=== PATIENT | female | born 1985 | race Caucasian/White ===

== ENCOUNTER 2020-01-17 02:40 | Inpatient (IN) | payer OTHER, SELFPAY ==
[2020-01-17] VITALS (12 sets, daily range): BP systolic 106–154; BP diastolic 55–84; PULSE 60–112; RESP 11–18; TEMP 36.5–37.4; O2SAT 92–99; BMI 34.2
[2020-01-17 04:08] LABS: Basophils Absolute Auto 0.1 X10*3/uL (0.0-0.2); Basophils Percent Auto 0.4 % (0-2); Eosinophils Absolute Auto 0.1 X10*3/uL (0.0-0.4); Eosinophils Percent Auto 0.6 % (0-4); Hemoglobin 13.1 g/dl (12.0-16.0); Imm Gran Abs Auto 0.06 X10*3/uL (0.00-0.03); Imm Gran Pct Auto 0.4 % (0.0-0.4); Lymphocytes Absolute Auto 1.4 X10*3/uL (1.2-4.9); Mean Corpuscular Hemoglobin 26.3 pg (27.0-33.0); Mean Corpuscular Volume 82.3 fL (80-98); Mean Platelet Volume 11.2 fL (9.4-12.3); Monocytes Absolute Auto 0.5 X10*3/uL (0.1-1.2); Monocytes Percent Auto 3.3 % (2-11); Neutrophils Absolute Auto 12.2 X10*3/uL (2.0-8.3); Neutrophils Percent Auto 85.3 % (45-73); Platelet Count 361 X10*3/uL (160-400); Red Blood Count 4.98 X10*6/uL (4.20-5.50); White Blood Count 14.4 X10*3/uL (4.8-10.8)
[2020-01-17 04:09] LABS: MANUAL DIFF FLAG NO
[2020-01-17] MEDS: ondansetron HCL 4 MG/2 ML VIAL IVPUSH ×2 (04:19→14:11)
[2020-01-17] MEDS: 0.9 % Sodium Chloride 1,000 ML 999 ML IVCONT (04:20)
--- NOTE | 2020-01-17 04:23 | PC.NURSE ---
pt lined and labbed, medicated per emar at this for nausea and vomitting. pt vomitted 500 cc of bile. unable to provide urine sample at this time. pending dr milligan
--- NOTE | 2020-01-17 04:31 | PC.NURSE ---
pt ambulated to bathroom without assistance
[2020-01-17 04:40] LABS: Alanine Aminotransferase 35 U/L (0-31); Albumin Level 4.2 g/dL (3.5-5.0); Alkaline Phosphatase 84 U/L (39-117); Anion Gap 13 (12-20); Aspartate Amino Transferase 17 U/L (5-31); Bilirubin Total < 0.2 mg/dL (0.0-1.0); Blood Urea Nitrogen 11 mg/dL (9-16); Calcium 9.5 mg/dL (8.4-10.2); Carbon Dioxide 23 mmol/L (22-29); Chloride 109 mmol/L (96-108); Creatinine Clr Calc Pharmacy 88.1; Estimated Glomerular Filt Rate > 60; Glucose Random 151 mg/dL (60-115); Potassium 4.3 mmol/l (3.3-5.1); Sodium 141 mmol/L (135-145); Total Protein 7.5 g/dL (6.5-8.0)
[2020-01-17 04:42] LABS: Glucose Urine UA NEG (NEG); Leukocyte Esterase Urine NEG (NEG); Nitrite Urine NEG (NEG); PH 5.5 (5.0-8.0); Specific Gravity - Urine >= 1.030 (1.005-1.025); Urine Blood 2+ (NEG); Urine Ketones NEG (NEG); Urine Protein NEG (NEG-TRACE)
[2020-01-17 04:51] LABS: Appearance Urine HAZY; Color Urine YELLOW
[2020-01-17 04:52] LABS: Bacteria Urine 2+ /LPF; Mucus Urine 2+ /LPF; Squamous Epithelial Cell Urine 2+ /LPF
[2020-01-17 04:53] LABS: Calcium Oxalate Crystals Urine 2+ /LPF; UPreg QC Valid YES; Urine Pregnancy NEGATIVE (NEGATIVE)
--- NOTE | 2020-01-17 05:41 | PC.NURSE ---
pt asking multiple times for medications. dr milligan aware of patients pain level.
--- NOTE | 2020-01-17 05:45 | CT_ITS ---
EXAMINATION: CT ABDOMEN AND PELVIS WITHOUT CONTRAST CLINICAL INFORMATION: Flank pain COMPARISON: 05/15/2016 TECHNIQUE: Multidetector volumetric imaging was performed from the superior aspect of the liver through the pubic symphysis. Sagittal and coronal reformatted images were obtained on the technologist's workstation. This CT examination was performed using dose optimization techniques as appropriate, variously including the following: *Automated exposure control *Adjustment of mA and/or kV according to patient size (this includes techniques or standardized protocols for targeted exams where dose is matched to indication/reason for exam; i.e. extremities or head) *Use of iterative reconstruction technique DLP: 701 mGy-cm FINDINGS: LUNG BASES: The visualized lung bases are unremarkable. LIVER, GALLBLADDER, AND BILIARY TREE: The liver is normal in size, shape, and attenuation. No focal hepatic lesion or biliary ductal dilatation is present. Patient is status post cholecystectomy. PANCREAS: Unremarkable. SPLEEN: Scattered tiny calcified granulomas noted. ADRENAL GLANDS: Unremarkable. KIDNEYS AND URETERS: The kidneys are normal in size, shape, and attenuation. Punctate renal calculi noted bilaterally. No hydronephrosis, hydroureter, or obstructing calculi seen. No perinephric stranding. BLADDER: Unremarkable. GASTROINTESTINAL TRACT: Much of the colon is noted to lie in the right abdomen. No evidence of bowel obstruction. No wall thickening identified. The appendix is predominantly fluid-filled and also contains a few appendicoliths, one of which is at the base of the appendix. Appendix is dilated to 11 mm in diameter, and there is suggestion of subtle adjacent stranding. No free fluid or free air is seen. ABDOMINAL WALL: No significant hernia is appreciated. LYMPH NODES: Normal. VASCULAR: Unremarkable. PELVIC VISCERA: Unremarkable. OSSEOUS STRUCTURES: Unremarkable. IMPRESSION: 1. Fluid-filled, dilated appendix with several appendicoliths and subtle adjacent stranding. Appearance raises concern for mild/early changes of acute appendicitis in the proper clinical setting. 2. Few punctate bilateral renal calculi, without hydronephrosis.
--- NOTE | 2020-01-17 05:56 | PC.NURSE ---
pt initially didnt want ct scan until she got pain medication but refused tylenol. dr milligan at bedside. pt ambulated to ct scan table at this time.
--- NOTE | 2020-01-17 06:29 | ED.ABDPAIN ---
HPI - Abdominal Pain General Chief Complaint: Abdominal Pain Stated Complaint: Abd pain Time Seen by Provider: 01/17/20 03:58 History of Present Illness HPI narrative: This is a 34-year-old female with right lower quadrant / flank pain that she describes has been going on for 2 days now and thinks that this may be secondary to her endometriosis. Otherwise, she denies any associated fevers or chills but did have an episode of nausea and vomiting prior to arrival. She is currently menstruating. Related Data Allergies Allergy/AdvReac Type Severity Reaction Status Date / Time diphenhydramine Allergy Unknown BODY PAIN Verified 01/17/20 02:42 [From BENADRYL] ibuprofen [From MOTRIN] Allergy Unknown HIVES Verified 01/17/20 02:42 morphine [MORPHINE] Allergy Unknown BACK Verified 01/17/20 02:42 MUSCLE SPASMS tramadol [TRAMADOL] Allergy Unknown HIVES Verified 01/17/20 02:42 From TORADOL Allergy Unknown HIVES Uncoded 12/16/19 18:30 Motrin Allergy Unknown Hives Uncoded 01/17/20 02:42 toradol Allergy Unknown Hives Uncoded 01/17/20 02:42 Review of Systems Review of Systems Pertinent positives and negatives as stated in HPI 10 point review of systems is otherwise negative. Physical Exam Vital Signs: Vital Signs: Vital Signs Temp Pulse Resp BP Pulse Ox 01/17/20 08:02 60 132/73 99 01/17/20 06:57 98.3 F 89 18 106/65 98 01/17/20 06:48 18 01/17/20 02:42 98.0 F 66 16 154/84 H 98 Body Mass Index 34.2 VITAL SIGNS: Reviewed. GENERAL: Well developed, well nourished, in no acute distress. HEAD: Normocephalic/atraumatic, EYES: PERRLA, EOMI intact without pain, no nystagmus/pallor/icterus noted EARS: Ext canals without abnormality, TMs non-bulging and non-erythematous NOSE: Nares patent bilateral OROPHARYNX: no oral lesions noted, posterior pharynx clear and non-erythematous without noted tonsillar enlargement/erythema/exudates NECK: Supple, no adenopathy LUNGS: Normal breath sounds. No adventitious sounds or accessory muscle use. SpO2<98%> CARDIOVASCULAR: Regular rate and rhythm without noted murmurs, no JVD or lower extremity edema. ABDOMEN: Soft, ttp at right lower quadrant, non-distended with bowel sounds. No rigidity. No guarding. No palpable masses or hernias noted MUSCULOSKELETAL: No tenderness, deformities, or effusions noted on gross inspection. EXTREMITIES: No cyanosis, clubbing or edema. SKIN: Inspection of the skin reveals no rashes, ulcerations, jaundice, pallor, or petechiae. NEUROLOGIC: Alert and oriented x 4. Strength and sensation to light touch were grossly intact x 4. Course Course Course Narrative: This is a 34-year-old female with history and clinical presentation suggestive of possible renal colic versus appendicitis versus endometriosis. On review of all lab work there is a leukocytosis and CT scan findings consistent with acute appendicitis. There is no evidence of sepsis. This case was discussed with surgery and they will be taking the patient for appendectomy. MDM - Abdominal Pain Lab Data Result diagrams: 01/17/20 04:01 01/17/20 04:01 Labs: Lab Results 01/17/20 01/17/20 01/17/20 Range/Units 04:01 04:01 04:01 WBC 14.4 H (4.8-10.8) X10*3/uL RBC 4.98 (4.20-5.50) X10*6/uL Hgb 13.1 (12.0-16.0) g/dl Hct 41.0 (37-47) % MCV 82.3 (80-98) fL MCH 26.3 L (27.0-33.0) pg MCHC 32.0 (31.0-35.0) g/dl RDW 15.0 (11.0-16.0) % Plt Count 361 (160-400) X10*3/uL MPV 11.2 (9.4-12.3) fL Immature Gran % (Auto) 0.4 (0.0-0.4) % Neut % (Auto) 85.3 H (45-73) % Lymph % (Auto) 10.0 L (20-40) % [place] % (Auto) 3.3 (2-11) % Eos % (Auto) 0.6 (0-4) % Baso % (Auto) 0.4 (0-2) % Lymph # (Auto) 1.4 (1.2-4.9) X10*3/uL [place] # (Auto) 0.5 (0.1-1.2) X10*3/uL Eos # (Auto) 0.1 (0.0-0.4) X10*3/uL Baso # (Auto) 0.1 (0.0-0.2) X10*3/uL Abs Immat Gran (auto) 0.06 H (0.00-0.03) X10*3/uL Absolute Neuts (auto) 12.2 H (2.0-8.3) X10*3/uL Absolute Nucleated RBC 0.000 (0.0-0.012) X10*3/uL Nucleated RBC % (auto) 0.0 (0.0-0.2) /100WBC Hold Blue Top SEE NOTE Sodium 141 (135-145) mmol/L Potassium 4.3 (3.3-5.1) mmol/l Chloride 109 H (96-108) mmol/L Carbon Dioxide 23 (22-29) mmol/L Anion Gap 13 (12-20) BUN 11 (9-16) mg/dL Creatinine 0.83 (0.5-1.4) mg/dL Estim Creat Clear Calc 88.1 Estimated GFR > 60 Random Glucose 151 H (60-115) mg/dL Calcium 9.5 (8.4-10.2) mg/dL Total Bilirubin < 0.2 (0.0-1.0) mg/dL AST 17 (5-31) U/L ALT 35 H (0-31) U/L Alkaline Phosphatase 84 (39-117) U/L Total Protein 7.5 (6.5-8.0) g/dL Albumin 4.2 (3.5-5.0) g/dL Urine Color Urine Appearance Urine pH (5.0-8.0) Ur Specific [place] (1.005-1.025) Urine Protein (NEG-TRACE) MG/DL Urine Glucose (UA) (NEG) MG/DL Urine Ketones (NEG) MG/DL Urine Blood (NEG) Urine Nitrite (NEG) Ur Leukocyte Esterase (NEG) Urine RBC (0) /HPF Urine WBC (0-4) /HPF Ur Squamous Epith Cells /LPF Calcium Oxalate Crystal /LPF Urine Bacteria /LPF Urine Mucus /LPF Urine Test (NEGATIVE) 01/17/20 01/17/20 Range/Units 04:34 04:34 WBC (4.8-10.8) X10*3/uL RBC (4.20-5.50) X10*6/uL Hgb (12.0-16.0) g/dl Hct (37-47) % MCV (80-98) fL MCH (27.0-33.0) pg MCHC (31.0-35.0) g/dl RDW (11.0-16.0) % Plt Count (160-400) X10*3/uL MPV (9.4-12.3) fL Immature Gran % (Auto) (0.0-0.4) % Neut % (Auto) (45-73) % Lymph % (Auto) (20-40) % [place] % (Auto) (2-11) % Eos % (Auto) (0-4) % Baso % (Auto) (0-2) % Lymph # (Auto) (1.2-4.9) X10*3/uL [place] # (Auto) (0.1-1.2) X10*3/uL Eos # (Auto) (0.0-0.4) X10*3/uL Baso # (Auto) (0.0-0.2) X10*3/uL Abs Immat Gran (auto) (0.00-0.03) X10*3/uL Absolute Neuts (auto) (2.0-8.3) X10*3/uL Absolute Nucleated RBC (0.0-0.012) X10*3/uL Nucleated RBC % (auto) (0.0-0.2) /100WBC Hold Blue Top Sodium (135-145) mmol/L Potassium (3.3-5.1) mmol/l Chloride (96-108) mmol/L Carbon Dioxide (22-29) mmol/L Anion Gap (12-20) BUN (9-16) mg/dL Creatinine (0.5-1.4) mg/dL Estim Creat Clear Calc Estimated GFR Random Glucose (60-115) mg/dL Calcium (8.4-10.2) mg/dL Total Bilirubin (0.0-1.0) mg/dL AST (5-31) U/L ALT (0-31) U/L Alkaline Phosphatase (39-117) U/L Total Protein (6.5-8.0) g/dL Albumin (3.5-5.0) g/dL Urine Color YELLOW Urine Appearance HAZY Urine pH 5.5 (5.0-8.0) Ur Specific [place] >= 1.030 H (1.005-1.025) Urine Protein NEG (NEG-TRACE) MG/DL Urine Glucose (UA) NEG (NEG) MG/DL Urine Ketones NEG (NEG) MG/DL Urine Blood 2+ H (NEG) Urine Nitrite NEG (NEG) Ur Leukocyte Esterase NEG (NEG) Urine RBC 1-4 (0) /HPF Urine WBC 1-4 (0-4) /HPF Ur Squamous Epith Cells 2+ /LPF Calcium Oxalate Crystal 2+ /LPF Urine Bacteria 2+ /LPF Urine Mucus 2+ /LPF Urine Test NEGATIVE (NEGATIVE) Discharge Plan Discharge Clinical Impression: Acute appendicitis Qualifiers: Acute appendicitis type: other Qualified Code(s): K35.890 - Other acute appendicitis without perforation or gangrene Patient Disposition: Admitted As Inpatient [facility] Past Medical History Medical History (Updated 01/17/20 @ 07:12 by Oksana Handy MD) Cholecystectomy planned Surgical History (Updated 01/17/20 @ 07:06 by Sp Dawkins) H/O lithotripsy H/O: Social History Social History Alcohol intake: never Smoked in Last 30 Days: No Use of substances other than those prescribed or required for medical reasons: No Advance Directives: No Advance Directives Information Provided: No
[2020-01-17] MEDS: Piperacillin Sodium/Tazobactam 3.375 GM in 0.9 % Sodium Chloride 50 ML IV (06:48)
[2020-01-17] MEDS: fentaNYL citrate/PF 100 MCG/2 ML VIAL 25 MCG IVPUSH (06:48)
--- NOTE | 2020-01-17 07:00 | PC.NURSE ---
RECEIVED REPORT FROM CHRISTINA DONIS
[2020-01-17] MEDS: HYDROmorphone HCl 0.5 MG/0.5 ML SYRINGE IVPUSH ×3 (07:22→15:33)
--- NOTE | 2020-01-17 07:24 | PC.NURSE ---
pt medicated with diulated,reports no improvement after fentanly pain at 10/10. pt rocking in pain in the stretcher
--- NOTE | 2020-01-17 08:01 | PC.NURSE ---
pt reports feeling better after the medication pain at 4/10 at this time. pt aware of plan to go to surgery this morning
--- NOTE | 2020-01-17 08:11 | MHC.SHP ---
Pre-Procedural Eval Section B Chief Complaint: APPENDETOMY LAPAROSCOPIC Allergies: Allergies Allergy/AdvReac Type Severity Reaction Status Date / Time diphenhydramine Allergy Unknown BODY PAIN Verified 01/17/20 02:42 [From BENADRYL] ibuprofen [From MOTRIN] Allergy Unknown HIVES Verified 01/17/20 02:42 morphine [MORPHINE] Allergy Unknown BACK Verified 01/17/20 02:42 MUSCLE SPASMS tramadol [TRAMADOL] Allergy Unknown HIVES Verified 01/17/20 02:42 From TORADOL Allergy Unknown HIVES Uncoded 12/16/19 18:30 Motrin Allergy Unknown Hives Uncoded 01/17/20 02:42 toradol Allergy Unknown Hives Uncoded 01/17/20 02:42 Plan Patient has been examined and remains a candidate for the planned procedure
--- NOTE | 2020-01-17 08:11 | PM.HPGS ---
History of Present Illness History of Present Illness Chief complaint: APPENDETOMY LAPAROSCOPIC Narrative: Ketty Vann is a 34 year old female [facility] Past Medical History Medical History (Updated 01/17/20 @ 07:12 by Oksana Handy MD) Cholecystectomy planned Surgical History Surgical History (Updated 01/17/20 @ 07:06 by Sp Dawkins) H/O lithotripsy H/O: Social History Social History Alcohol intake: never Smoked in Last 30 Days: No Use of substances other than those prescribed or required for medical reasons: No Advance Directives: No Advance Directives Information Provided: No Meds Allergies Allergy/AdvReac Type Severity Reaction Status Date / Time diphenhydramine Allergy Unknown BODY PAIN Verified 01/17/20 02:42 [From BENADRYL] ibuprofen [From MOTRIN] Allergy Unknown HIVES Verified 01/17/20 02:42 morphine [MORPHINE] Allergy Unknown BACK Verified 01/17/20 02:42 MUSCLE SPASMS tramadol [TRAMADOL] Allergy Unknown HIVES Verified 01/17/20 02:42 From TORADOL Allergy Unknown HIVES Uncoded 12/16/19 18:30 Motrin Allergy Unknown Hives Uncoded 01/17/20 02:42 toradol Allergy Unknown Hives Uncoded 01/17/20 02:42 Physical Exam Vital Signs: Vital Signs: Vital Signs Temp Pulse Resp BP Pulse Ox 01/17/20 08:02 60 132/73 99 01/17/20 06:57 98.3 F 89 18 106/65 98 01/17/20 06:48 18 01/17/20 02:42 98.0 F 66 16 154/84 H 98 Body Mass Index 34.2 Results Results Labs: Short CBC 01/17/20 Range/Units 04:01 WBC 14.4 H (4.8-10.8) X10*3/uL Hgb 13.1 (12.0-16.0) g/dl Hct 41.0 (37-47) % Plt Count 361 (160-400) X10*3/uL BMP 01/17/20 04:01 Sodium 141 Potassium 4.3 Chloride 109 H Carbon Dioxide 23 BUN 11 Creatinine 0.83 Calcium 9.5 Liver Function 01/17/20 Range/Units 04:01 Total Bilirubin < 0.2 (0.0-1.0) mg/dL AST 17 (5-31) U/L ALT 35 H (0-31) U/L Alkaline Phosphatase 84 (39-117) U/L Albumin 4.2 (3.5-5.0) g/dL Urine 01/17/20 01/17/20 Range/Units 04:34 04:34 Urine Color YELLOW Urine Appearance HAZY Urine pH 5.5 (5.0-8.0) Ur Specific [place] >= 1.030 H (1.005-1.025) Urine Protein NEG (NEG-TRACE) MG/DL Urine Glucose (UA) NEG (NEG) MG/DL Urine Test NEGATIVE (NEGATIVE)
--- NOTE | 2020-01-17 09:15 | PC.NURSE ---
pt medicated with additional diulated 0.5mg for pain at 11/07 at this time
--- NOTE | 2020-01-17 09:33 | PC.NURSE ---
REPORT GIVEN TO MED/TRANSPORTATION WORKER
--- NOTE | 2020-01-17 09:43 | PC.NURSE ---
SURGENT AT BEDSIDE TO EVALUATE THE PT
--- NOTE | 2020-01-17 09:57 | P.HPGS_ITS ---
History of Present Illness History of Present Illness Chief complaint: APPENDETOMY LAPAROSCOPIC Narrative: This is a 34-year-old lady previously healthy with the exception of pelvic pain from endometriosis who developed periumbilical pain 2 days ago. She reports the pain was initially a 5/10 and progressed over the course of the last 48 hours. She reports pain localized to the right lower quadrant early this morning. Her pain is now in 9 to 10/10 on a pain scale. She had associated nausea and vomiting at home. Her last meal was rice at 6 in the evening yesterday. She reports having diarrhea which is a change from her normal bowel habits. Last stool was this morning in the emergency department. She reports no alleviating factors but reports any kind of movement using the abdominal muscles worsens the pain. She reports feeling hot and cold at home but did not have a fever. She denies prior episodes. Patient was seen in the emergency department evaluated and found have white blood cell count of 14.4. She had a CT scan abdomen pelvis was that showed a mostly fluid filled appendix with a few appendicoliths and 1 at the base of the appendix with dilation of the appendix and self surrounding fat stranding. Review of Systems Constitutional: Constitutional: Reports anorexia, Reports chills, Reports difficulty sleeping, Denies excessive sweating, Reports fatigue and Reports lethargy Eyes: Eyes: Denies blurry vision and Denies other visual disturbances ENT: Reports Normal hearing present, Denies dysphagia, Denies vertigo, Denies dizziness and Denies neck pain Cardiovascular: Cardiovascular: Denies chest pain, Denies chest pain at rest, Denies chest pain with activity, Denies syncope and Denies pedal edema Respiratory: Respiratory: Denies no additional respiratory complaints and Reports cough Gastrointestinal: Gastrointestinal: Reports hematochezia, Reports change in bowel habits, Denies dysphagia, Denies heartburn, Reports diarrhea, Reports nausea and Reports vomiting Genitourinary: Genitourinary: Denies hematuria, Denies urinary frequency and Reports pelvic pain Musculoskeletal: Musculoskeletal: Denies abnormal gait, Reports back pain, Denies arthralgias, Denies joint swelling and Denies neck pain Neurologic: Reports Normal hearing present, Denies Neuro-related abnormal movements, Denies Abnormal speech present, Denies abnormal gait, Denies confusion, Denies vertigo, Denies dizziness and Denies syncope Psychiatric: Psychiatric: Denies confusion, Reports depression and Reports mood swings Endocrine: Endocrine: Denies excessive sweating, Reports fatigue, Denies flushing and Denies heat intolerance Hematologic/Lymphatic: Hematologic/Lymphatic: Denies easy bleeding, Denies easy bruising and Denies lymphadenopathy PMFSH Past Medical History Medical History Bipolar disorder Endometriosis Hypothyroidism Obesity (BMI 30-39.9) Posterior cranial fossa malformation, hemangioma, arterial anomaly, cardiac defect, eye abnormality, and sternal cleft or supraumbilical raphe syndrome Family History Family History Father No problems noted. Mother No problems noted. Paternal Grandfather History of bone cancer Sister No problems noted. Sister No problems noted. Daughter No problems noted. Daughter No problems noted. Surgical History Surgical History (Updated 01/17/20 @ 10:08 by Annalise Sky MD) H/O lithotripsy H/O: History of skin graft S/P laparoscopic cholecystectomy S/P left knee arthroscopy Social History Social History (Updated 01/17/20 @ 10:12 by Annalise Sky MD) Alcohol intake: never Smoking Status: Former smoker Smoked in Last 30 Days: No Smoking Quit Date: 2013 Use of substances other than those prescribed or required for medical reasons: No Advance Directives: No Advance Directives Information Provided: No Meds Allergies Allergy/AdvReac Type Severity Reaction Status Date / Time diphenhydramine Allergy Unknown BODY PAIN Verified 01/17/20 10:12 [From BENADRYL] ibuprofen [From MOTRIN] Allergy Unknown HIVES Verified 01/17/20 10:12 morphine [MORPHINE] Allergy Unknown BACK Verified 01/17/20 10:12 MUSCLE SPASMS tramadol [TRAMADOL] Allergy Unknown HIVES Verified 01/17/20 10:12 From TORADOL Allergy Unknown HIVES Uncoded 01/17/20 10:12 Motrin Allergy Unknown Hives Uncoded 01/17/20 10:12 toradol Allergy Unknown Hives Uncoded 01/17/20 10:12 Home Medications Medication Instructions Recorded Confirmed Type lamotrigine 200 mg PO DAILY 01/17/20 01/17/20 History levothyroxine 88 mcg PO DAILY 01/17/20 01/17/20 History Physical Exam Vital Signs: Vital Signs: Vital Signs Temp Pulse Resp BP Pulse Ox 01/17/20 09:16 98.1 F 79 128/70 98 01/17/20 08:02 60 132/73 99 01/17/20 06:57 98.3 F 89 18 106/65 98 01/17/20 06:48 18 01/17/20 02:42 98.0 F 66 16 154/84 H 98 Body Mass Index 34.2 Const: General: cooperative, healthy appearing and no acute distress; No comfortable or confusion Orientation/consciousness: No confusion HENMT: Head: Yes normal to inspection, Yes normocephalic and Yes atraumatic Eyes: General: appearance normal, both eyes and all related structures Conjunctivae: conjunctivae normal Sclerae: sclerae normal EOM: EOMs intact bilaterally Neck: Neck: Yes normal visual inspection, Yes full ROM, Yes no lymphadenopathy and Yes supple Resp: Effort & Inspection: normal respiratory effort, able to speak in complete sentences, no audible wheezes and no cough Auscultation: clear to auscultation bilaterally Cardio: Rate: regular rate Heart sounds: S1 normal heart sound present and S2 normal heart sound present GI: Inspection: Yes normal to inspection, No Abdominal wall edema, No distended and No incision Palpation (GI): Soft to palpation, Tenderness to palpation present (GI) ( bilateral lower quadrants and suprapubic) and Guarding due to palpation present (GI) ( and rebound) in the LLQ and in the RLQ Skin: General skin exam: no rashes or lesions noted Neuro: General: No confusion Cranial nerves: Yes Normal hearing present Speech: No Abnormal speech present Extrem: General: Yes normal to inspection, Yes full ROM, Yes no pedal edema and Yes no calf tenderness Results Results Labs: Short CBC 01/17/20 Range/Units 04:01 WBC 14.4 H (4.8-10.8) X10*3/uL Hgb 13.1 (12.0-16.0) g/dl Hct 41.0 (37-47) % Plt Count 361 (160-400) X10*3/uL BMP 01/17/20 04:01 Sodium 141 Potassium 4.3 Chloride 109 H Carbon Dioxide 23 BUN 11 Creatinine 0.83 Calcium 9.5 Liver Function 01/17/20 Range/Units 04:01 Total Bilirubin < 0.2 (0.0-1.0) mg/dL AST 17 (5-31) U/L ALT 35 H (0-31) U/L Alkaline Phosphatase 84 (39-117) U/L Albumin 4.2 (3.5-5.0) g/dL Urine 01/17/20 01/17/20 Range/Units 04:34 04:34 Urine Color YELLOW Urine Appearance HAZY Urine pH 5.5 (5.0-8.0) Ur Specific [place] >= 1.030 H (1.005-1.025) Urine Protein NEG (NEG-TRACE) MG/DL Urine Glucose (UA) NEG (NEG) MG/DL Urine Test NEGATIVE (NEGATIVE) Assessment and Plan (1) Acute appendicitis: Qualifiers: Acute appendicitis type: other Qualified Code(s): K35.890 - Other acute appendicitis without perforation or gangrene Status: Acute this is a 34-year-old lady with acute appendicitis by history physical exam laboratory values and radiologic studies. She will be taken to the operating room for laparoscopic possible open appendectomy. Risks benefits and alternatives were discussed with the patient she agrees proceed.
[2020-01-17 10:01] LABS: SARS COV2 PCR INHOUSE NEGATIVE (Negative)
--- NOTE | 2020-01-17 12:21 | P.CONAN_ITS ---
[facility] Past Medical History Medical History Bipolar disorder Endometriosis Hypothyroidism Obesity (BMI 30-39.9) Posterior cranial fossa malformation, hemangioma, arterial anomaly, cardiac defect, eye abnormality, and sternal cleft or supraumbilical raphe syndrome Family History Family History Father No problems noted. Mother No problems noted. Paternal Grandfather History of bone cancer Sister No problems noted. Sister No problems noted. Daughter No problems noted. Daughter No problems noted. Surgical History Surgical History (Updated 01/17/20 @ 10:08 by Annalise Sky MD) H/O lithotripsy H/O: History of skin graft S/P laparoscopic cholecystectomy S/P left knee arthroscopy Social History Social History (Updated 01/17/20 @ 10:12 by Annalise Sky MD) Household Members: Spouse Housing: House Alcohol intake: never Smoking Status: Former smoker Second Hand Smoke Exposure: No Meds Allergies Allergy/AdvReac Type Severity Reaction Status Date / Time ibuprofen [From MOTRIN] Allergy Unknown HIVES Verified 01/17/20 10:12 tramadol [TRAMADOL] Allergy Unknown HIVES Verified 01/17/20 10:12 diphenhydramine AdvReac Unknown BODY PAIN Verified 01/17/20 10:21 [From BENADRYL] morphine [MORPHINE] AdvReac Unknown BACK Verified 01/17/20 10:21 MUSCLE SPASMS From TORADOL Allergy Unknown HIVES Uncoded 01/17/20 10:12 Home Medications Medication Instructions Recorded Confirmed Type lamotrigine 200 mg PO DAILY 01/17/20 01/17/20 History levothyroxine 88 mcg PO DAILY 01/17/20 01/17/20 History Exam Exam Date and Time: January 17, 2020 1221 Height,Weight and Vital Signs: Height 5 ft Weight 79.37 kg Last Vital Signs Temp 98.1 F 01/17/20 09:16 Pulse 79 01/17/20 09:16 Resp 18 01/17/20 06:57 BP 128/70 01/17/20 09:16 Pulse Ox 98 01/17/20 09:16 Pertinent Lab Results Pertinent Lab Results: Laboratory Tests 01/17/20 01/17/20 01/17/20 04:01 04:01 04:01 WBC 14.4 H RBC 4.98 Hgb 13.1 Hct 41.0 MCV 82.3 MCH 26.3 L MCHC 32.0 RDW 15.0 Plt Count 361 MPV 11.2 Immature Gran % (Auto) 0.4 Neut % (Auto) 85.3 H Lymph % (Auto) 10.0 L [place] % (Auto) 3.3 Eos % (Auto) 0.6 Baso % (Auto) 0.4 Lymph # (Auto) 1.4 [place] # (Auto) 0.5 Eos # (Auto) 0.1 Baso # (Auto) 0.1 Abs Immat Gran (auto) 0.06 H Absolute Neuts (auto) 12.2 H Absolute Nucleated RBC 0.000 Nucleated RBC % (auto) 0.0 Hold Blue Top SEE NOTE Sodium 141 Potassium 4.3 Chloride 109 H Carbon Dioxide 23 Anion Gap 13 BUN 11 Creatinine 0.83 Estim Creat Clear Calc 88.1 Estimated GFR > 60 Random Glucose 151 H Calcium 9.5 Total Bilirubin < 0.2 AST 17 ALT 35 H Alkaline Phosphatase 84 Total Protein 7.5 Albumin 4.2 Urine Color Urine Appearance Urine pH Ur Specific [place] Urine Protein Urine Glucose (UA) Urine Ketones Urine Blood Urine Nitrite Ur Leukocyte Esterase Urine RBC Urine WBC Ur Squamous Epith Cells Calcium Oxalate Crystal Urine Bacteria Urine Mucus Urine Test Coronavirus (PCR) 01/17/20 01/17/20 01/17/20 04:34 04:34 08:51 WBC RBC Hgb Hct MCV MCH MCHC RDW Plt Count MPV Immature Gran % (Auto) Neut % (Auto) Lymph % (Auto) [place] % (Auto) Eos % (Auto) Baso % (Auto) Lymph # (Auto) [place] # (Auto) Eos # (Auto) Baso # (Auto) Abs Immat Gran (auto) Absolute Neuts (auto) Absolute Nucleated RBC Nucleated RBC % (auto) Hold Blue Top Sodium Potassium Chloride Carbon Dioxide Anion Gap BUN Creatinine Estim Creat Clear Calc Estimated GFR Random Glucose Calcium Total Bilirubin AST ALT Alkaline Phosphatase Total Protein Albumin Urine Color YELLOW Urine Appearance HAZY Urine pH 5.5 Ur Specific [place] >= 1.030 H Urine Protein NEG Urine Glucose (UA) NEG Urine Ketones NEG Urine Blood 2+ H Urine Nitrite NEG Ur Leukocyte Esterase NEG Urine RBC 1-4 Urine WBC 1-4 Ur Squamous Epith Cells 2+ Calcium Oxalate Crystal 2+ Urine Bacteria 2+ Urine Mucus 2+ Urine Test NEGATIVE Coronavirus (PCR) NEGATIVE Airway Mallampati Class: I TM Dist: >3cm Neck ROM: Full Heart: RRR Assessment and Plan Assessment Anesthesia Assessment: Anesthesia Plan Discussed Final Anesthetic Review NPO: Yes ASA Class: II Final Preanesthetic Review: Consent Obtained/Reviewed Anesthetic Plan Anesthetic Plan: GA Disposition: Standard PACU
--- NOTE | 2020-01-17 12:37 | P.CONAN_ITS ---
Documented by User: Jono Montelongo 01/17/20 12:38 [facility] Past Medical History Medical History Bipolar disorder Endometriosis Hypothyroidism Obesity (BMI 30-39.9) Posterior cranial fossa malformation, hemangioma, arterial anomaly, cardiac defect, eye abnormality, and sternal cleft or supraumbilical raphe syndrome Family History Family History Father No problems noted. Mother No problems noted. Paternal Grandfather History of bone cancer Sister No problems noted. Sister No problems noted. Daughter No problems noted. Daughter No problems noted. Surgical History Surgical History (Updated 01/17/20 @ 10:08 by Annalise Sky MD) H/O lithotripsy H/O: History of skin graft S/P laparoscopic cholecystectomy S/P left knee arthroscopy Social History Social History (Updated 01/17/20 @ 10:12 by Annalise Sky MD) Household Members: Spouse Housing: House Alcohol intake: never Smoking Status: Former smoker Second Hand Smoke Exposure: No Meds Allergies Allergy/AdvReac Type Severity Reaction Status Date / Time ibuprofen [From MOTRIN] Allergy Unknown HIVES Verified 01/17/20 10:12 tramadol [TRAMADOL] Allergy Unknown HIVES Verified 01/17/20 10:12 diphenhydramine AdvReac Unknown BODY PAIN Verified 01/17/20 10:21 [From BENADRYL] morphine [MORPHINE] AdvReac Unknown BACK Verified 01/17/20 10:21 MUSCLE SPASMS From TORADOL Allergy Unknown HIVES Uncoded 01/17/20 10:12 Home Medications Medication Instructions Recorded Confirmed Type lamotrigine 200 mg PO DAILY 01/17/20 01/17/20 History levothyroxine 88 mcg PO DAILY 01/17/20 01/17/20 History Exam Exam Date and Time: January 17, 2020 1237 Height,Weight and Vital Signs: Height 5 ft Weight 79.37 kg Last Vital Signs Temp 98.1 F 01/17/20 09:16 Pulse 79 01/17/20 09:16 Resp 18 01/17/20 06:57 BP 128/70 01/17/20 09:16 Pulse Ox 98 01/17/20 09:16 Pertinent Lab Results Pertinent Lab Results: Laboratory Tests 01/17/20 01/17/20 01/17/20 04:01 04:01 04:01 WBC 14.4 H RBC 4.98 Hgb 13.1 Hct 41.0 MCV 82.3 MCH 26.3 L MCHC 32.0 RDW 15.0 Plt Count 361 MPV 11.2 Immature Gran % (Auto) 0.4 Neut % (Auto) 85.3 H Lymph % (Auto) 10.0 L [place] % (Auto) 3.3 Eos % (Auto) 0.6 Baso % (Auto) 0.4 Lymph # (Auto) 1.4 [place] # (Auto) 0.5 Eos # (Auto) 0.1 Baso # (Auto) 0.1 Abs Immat Gran (auto) 0.06 H Absolute Neuts (auto) 12.2 H Absolute Nucleated RBC 0.000 Nucleated RBC % (auto) 0.0 Hold Blue Top SEE NOTE Sodium 141 Potassium 4.3 Chloride 109 H Carbon Dioxide 23 Anion Gap 13 BUN 11 Creatinine 0.83 Estim Creat Clear Calc 88.1 Estimated GFR > 60 Random Glucose 151 H Calcium 9.5 Total Bilirubin < 0.2 AST 17 ALT 35 H Alkaline Phosphatase 84 Total Protein 7.5 Albumin 4.2 Urine Color Urine Appearance Urine pH Ur Specific [place] Urine Protein Urine Glucose (UA) Urine Ketones Urine Blood Urine Nitrite Ur Leukocyte Esterase Urine RBC Urine WBC Ur Squamous Epith Cells Calcium Oxalate Crystal Urine Bacteria Urine Mucus Urine Test Coronavirus (PCR) 01/17/20 01/17/20 01/17/20 04:34 04:34 08:51 WBC RBC Hgb Hct MCV MCH MCHC RDW Plt Count MPV Immature Gran % (Auto) Neut % (Auto) Lymph % (Auto) [place] % (Auto) Eos % (Auto) Baso % (Auto) Lymph # (Auto) [place] # (Auto) Eos # (Auto) Baso # (Auto) Abs Immat Gran (auto) Absolute Neuts (auto) Absolute Nucleated RBC Nucleated RBC % (auto) Hold Blue Top Sodium Potassium Chloride Carbon Dioxide Anion Gap BUN Creatinine Estim Creat Clear Calc Estimated GFR Random Glucose Calcium Total Bilirubin AST ALT Alkaline Phosphatase Total Protein Albumin Urine Color YELLOW Urine Appearance HAZY Urine pH 5.5 Ur Specific [place] >= 1.030 H Urine Protein NEG Urine Glucose (UA) NEG Urine Ketones NEG Urine Blood 2+ H Urine Nitrite NEG Ur Leukocyte Esterase NEG Urine RBC 1-4 Urine WBC 1-4 Ur Squamous Epith Cells 2+ Calcium Oxalate Crystal 2+ Urine Bacteria 2+ Urine Mucus 2+ Urine Test NEGATIVE Coronavirus (PCR) NEGATIVE Assessment and Plan Final Anesthetic Review ASA Class: II Anesthetic Plan Anesthetic Plan: GA Documented by User: Liliana Hall 01/17/20 13:06 [facility] Past Medical History Medical History Bipolar disorder Endometriosis Hypothyroidism Obesity (BMI 30-39.9) Posterior cranial fossa malformation, hemangioma, arterial anomaly, cardiac defect, eye abnormality, and sternal cleft or supraumbilical raphe syndrome Family History Family History Father No problems noted. Mother No problems noted. Paternal Grandfather History of bone cancer Sister No problems noted. Sister No problems noted. Daughter No problems noted. Daughter No problems noted. Surgical History Surgical History (Updated 01/17/20 @ 10:08 by Annalise Sky MD) H/O lithotripsy H/O: History of skin graft S/P laparoscopic cholecystectomy S/P left knee arthroscopy Social History Social History (Updated 01/17/20 @ 10:12 by Annalise Sky MD) Household Members: Spouse Housing: House Alcohol intake: never Smoking Status: Former smoker Second Hand Smoke Exposure: No Meds Allergies Allergy/AdvReac Type Severity Reaction Status Date / Time ibuprofen [From MOTRIN] Allergy Unknown HIVES Verified 01/17/20 10:12 tramadol [TRAMADOL] Allergy Unknown HIVES Verified 01/17/20 10:12 diphenhydramine AdvReac Unknown BODY PAIN Verified 01/17/20 10:21 [From BENADRYL] morphine [MORPHINE] AdvReac Unknown BACK Verified 01/17/20 10:21 MUSCLE SPASMS From TORADOL Allergy Unknown HIVES Uncoded 01/17/20 10:12 Home Medications Medication Instructions Recorded Confirmed Type lamotrigine 200 mg PO DAILY 01/17/20 01/17/20 History levothyroxine 88 mcg PO DAILY 01/17/20 01/17/20 History Exam Pertinent Lab Results Pertinent Lab Results: 01/17/20 03:54 IV insert/maintain NOW 01/17/20 04:01 Complete Blood Count Auto Diff Stat Comprehensive Met. Panel Stat Hold Lt Blue - Possible Coag Stat 01/17/20 04:10 ondansetron HCL [Zofran] 4 mg IVPUSH ONCE ONE 01/17/20 04:15 0.9 % Sodium Chloride [Ns] 1,000 ml IVCONT 999 mls/hr 01/17/20 04:34 Ur Preg Test Stat 01/17/20 05:45 CT abdomen pelvis wo con Stat 01/17/20 05:46 Acetaminophen [Tylenol] 975 mg PO ONCE ONE 01/17/20 06:37 Piperacillin Sodium/Tazobactam [Zosyn] 3.375 gm 0.9 % Sodium Chloride [Ns] 50 ml IV ONCE fentaNYL citrate/PF [Sublimaze] 25 mcg IVPUSH ONCE ONE 01/17/20 06:41 Piperacillin Sodium/Tazobactam [Zosyn] 3.375 gm IV .STK-MED ONE 01/17/20 06:51 ondansetron HCL [Zofran] 4 mg .ROUTE .STK-MED ONE 01/17/20 07:16 HYDROmorphone HCl [Dilaudid] 0.5 mg IVPUSH ONCE ONE 01/17/20 08:09 cefoTEtan disod/Dextrose,Iso [Cefotan] 2 gm in 50 ml IV PREOP 01/17/20 08:10 Transfer Order Routine 01/17/20 08:51 SARS COV2 PCR INHOUSE Stat 01/17/20 Breakfast NPO Diet 01/17/20 10:52 cefoTEtan disodium [Cefotan] 2 gm .ROUTE .STK-MED ONE 01/17/20 11:45 Transfer Order Routine 01/17/20 12:04 Bupivacaine MPF 0.25 % [Sensorcaine-MPF 0.25% 10 ML] 10 ml .ROUTE .STK-MED ONE Lidocaine HCl 1%/Epi 1:100,000 [Xylocaine 1 %-EPI 1:100,000] 30 ml .ROUTE .STK-MED ONE 01/17/20 12:09 Lidocaine HCl 2 % MPF [Xylocaine 2 % MPF] 5 ml .ROUTE .STK-MED ONE Midazolam HCl/PF [Versed] 2 mg IVPUSH .STK-MED ONE Succinylcholine Chloride [Quelicin] 100 mg IVPUSH .STK-MED ONE fentaNYL citrate/PF [Sublimaze] 50 mcg .ROUTE .STK-MED ONE propofoL [Diprivan] 200 mg IVPUSH .STK-MED ONE 01/17/20 12:14 Rocuronium [place] [Zemuron] 100 mg IV .STK-MED ONE 01/17/20 12:28 Acetaminophen [Ofirmev] 1,000 mg in 100 ml IV ONCE Laboratory Last Values WBC 14.4 X10*3/uL (4.8-10.8) H 01/17/20 04:01 RBC 4.98 X10*6/uL (4.20-5.50) 01/17/20 04:01 Hgb 13.1 g/dl (12.0-16.0) 01/17/20 04:01 Hct 41.0 % (37-47) 01/17/20 04:01 MCV 82.3 fL (80-98) 01/17/20 04:01 MCH 26.3 pg (27.0-33.0) L 01/17/20 04:01 MCHC 32.0 g/dl (31.0-35.0) 01/17/20 04:01 RDW 15.0 % (11.0-16.0) 01/17/20 04:01 Plt Count 361 X10*3/uL (160-400) 01/17/20 04:01 MPV 11.2 fL (9.4-12.3) 01/17/20 04:01 Immature Gran % (Auto) 0.4 % (0.0-0.4) 01/17/20 04:01 Neut % (Auto) 85.3 % (45-73) H 01/17/20 04:01 Lymph % (Auto) 10.0 % (20-40) L 01/17/20 04:01 Boy[place] % (Auto) 3.3 % (2-11) 01/17/20 04:01 Eos % (Auto) 0.6 % (0-4) 01/17/20 04:01 Baso % (Auto) 0.4 % (0-2) 01/17/20 04:01 Lymph # (Auto) 1.4 X10*3/uL (1.2-4.9) 01/17/20 04:01 [place] # (Auto) 0.5 X10*3/uL (0.1-1.2) 01/17/20 04:01 Eos # (Auto) 0.1 X10*3/uL (0.0-0.4) 01/17/20 04:01 Baso # (Auto) 0.1 X10*3/uL (0.0-0.2) 01/17/20 04:01 Abs Immat Gran (auto) 0.06 X10*3/uL (0.00-0.03) H 01/17/20 04:01 Absolute Neuts (auto) 12.2 X10*3/uL (2.0-8.3) H 01/17/20 04:01 Absolute Nucleated RBC 0.000 X10*3/uL (0.0-0.012) 01/17/20 04:01 Nucleated RBC % (auto) 0.0 /100WBC (0.0-0.2) 01/17/20 04:01 Hold Blue Top SEE NOTE 01/17/20 04:01 Sodium 141 mmol/L (135-145) 01/17/20 04:01 Potassium 4.3 mmol/l (3.3-5.1) 01/17/20 04:01 Chloride 109 mmol/L (96-108) H 01/17/20 04:01 Carbon Dioxide 23 mmol/L (22-29) 01/17/20 04:01 Anion Gap 13 (12-20) 01/17/20 04:01 BUN 11 mg/dL (9-16) 01/17/20 04:01 Creatinine 0.83 mg/dL (0.5-1.4) 01/17/20 04:01 Estim Creat Clear Calc 88.1 01/17/20 04:01 Estimated GFR > 60 01/17/20 04:01 Random Glucose 151 mg/dL (60-115) H 01/17/20 04:01 Calcium 9.5 mg/dL (8.4-10.2) 01/17/20 04:01 Total Bilirubin < 0.2 mg/dL (0.0-1.0) 01/17/20 04:01 AST 17 U/L (5-31) 01/17/20 04:01 ALT 35 U/L (0-31) H 01/17/20 04:01 Alkaline Phosphatase 84 U/L (39-117) 01/17/20 04:01 Total Protein 7.5 g/dL (6.5-8.0) 01/17/20 04:01 Albumin 4.2 g/dL (3.5-5.0) 01/17/20 04:01 Urine Color YELLOW 01/17/20 04:34 Urine Appearance HAZY 01/17/20 04:34 Urine pH 5.5 (5.0-8.0) 01/17/20 04:34 Ur Specific [place] >= 1.030 (1.005-1.025) H 01/17/20 04:34 Urine Protein NEG MG/DL (NEG-TRACE) 01/17/20 04:34 Urine Glucose (UA) NEG MG/DL (NEG) 01/17/20 04:34 Urine Ketones NEG MG/DL (NEG) 01/17/20 04:34 Urine Blood 2+ (NEG) H 01/17/20 04:34 Urine Nitrite NEG (NEG) 01/17/20 04:34 Ur Leukocyte Esterase NEG (NEG) 01/17/20 04:34 Urine RBC 1-4 /HPF (0) 01/17/20 04:34 Urine WBC 1-4 /HPF (0-4) 01/17/20 04:34 Ur Squamous Epith Cells 2+ /LPF 01/17/20 04:34 Calcium Oxalate Crystal 2+ /LPF 01/17/20 04:34 Urine Bacteria 2+ /LPF 01/17/20 04:34 Urine Mucus 2+ /LPF 01/17/20 04:34 Urine Test NEGATIVE (NEGATIVE) 01/17/20 04:34 Coronavirus (PCR) NEGATIVE (Negative) 01/17/20 08:51
[2020-01-17] MEDS: Lactated Ringers 1,000 ML 100 ML IVCONT (12:39)
[2020-01-17] MEDS: fentaNYL citrate/PF 100 MCG/2 ML VIAL 50 MCG IVPUSH (14:11)
[2020-01-17] MEDS: oxyCODONE HCl Immed Release 5 MG TABLET PO (14:11)
--- NOTE | 2020-01-17 14:16 | W.PM.OPN ---
Operative Note Operative Note Narrative: Patient was brought into the operating room, placed on operating room table in a supine position. General anesthesia was induced. The patient received 2g of IV Zosyn preoperatively. Normal DVT prophylaxis was instituted. Safety time-out was performed. The abdomen was prepped and draped in normal sterile fashion using ChloraPrep. Next a mixture of 1% lidocaine with epinephrine 0.25% Marcaine plain was used to anesthetize the planned incision site in the infraumbilical position. A number 11 scalpel used to make a 2 cm infraumbilical transverse surgical incision through which the subcutaneous tissues were dissected down to the level of the fascia. The fascia was grasped between 2 Isabella clamps and entered for about 1 cm. A 11. Scalpel used to cut the fascia. A 0 Vicryl suture was placed on either side of the opened fascia. A finger was used to bluntly gain access to the intra-abdominal cavity. A 12 mm Chu trocar was introduced into the abdomen and secured to the abdominal wall using sutures on the fascia. The abdominal cavity was insufflated to 15 mm of mercury. A 5 mm 30 degree laparoscopic was introduced abdomen and used to survey the abdominal cavity which was relatively normal. Two additional 5 mm ports were placed under direct vision, 1 in the suprapubic region and 1 in the left lower quadrant under direct vision. The patient was placed in Trendelenburg positioning with the left side tilted down. We visualized the cecum in the right lower quadrant as well as the appendix. We grasped the appendix and dissected it free from the surrounding tissues. We used the LigaSure device to dissect the mesoappendix down at the base of the appendix. We then used a 45 mm white load stapler to staple across the base of the appendix. We placed the appendix in an Endo-Catch bag and removed from the abdomen. We evaluated staple line at the cecum and it was in good condition there was evidence of any bleeding. There was no injury to any of the viscera. We then removed the 5 mm ports from the suprapubic region and the left lower quadrant under direct vision. There was no bleeding from these port sites. We desufflated the abdomen under direct vision and removed the last port and laparoscope. We reapproximated the fascial defect at the umbilicus using a [id number] 0 Vicryl suture and tied the original fascial sutures over that closure. There was no residual fascial defect. We reapproximated all skin incisions with a 4 0 Monocryl subcuticular stitch. We cleaned and dried the skin and applied Dermabond skin glue to all skin incisions. All counts were correct at the end of the case there were no complications. The patient was awakened in stable condition prior to extubation and transferred to recovery room.
--- NOTE | 2020-01-17 14:17 | PM.OP ---
Brief Operative Note Date of procedure: 01/17/20 Pre-op diagnosis: acute appendicitis Post-op diagnosis: same Procedure: laparoscopic appendectomy Implants: none Surgeon: Annalise Sky MD Anesthesia: HARIKA [employer] Dis[employer] Manager: Cathleen Loya Estimated blood loss (mL): 5 Urine output (mL): 0 Pathology: other ( appendix) Condition: stable Disposition: PACU
[2020-01-17] MEDS: 0.9 % Sodium Chloride 1,000 ML 125 ML IVCONT ×2 (15:33→23:49)
[2020-01-17] MEDS: 0.9 % Sodium Chloride Flush 3 ML SYRINGE IVFLUSH ×2 (15:34→23:48)
--- NOTE | 2020-01-17 16:18 | MHC.CM.PN ---
MET WITH PATIENT S/P SURGERY. PLEASANT AND COOPERATIVE. PT [facility] [place]. PCP IS DR. YESSENIA AGUILAR. CM ASSESSMENT COMPLETED. IMM EXPLAINED AND SIGNED. INSURANCE INCLUDES , MEDICARE AND MEDICAID.
[2020-01-17] MEDS: oxyCODONE HCl Immed Release 5 MG TABLET 10 MG PO (20:30)
[2020-01-17] MEDS: Acetaminophen 325 MG TABLET 650 MG PO (21:42)
[2020-01-18] MEDS: HYDROmorphone HCl 0.5 MG/0.5 ML SYRINGE IVPUSH ×2 (04:31→08:20)
--- NOTE | 2020-01-18 08:04 | HO.POSTANES ---
Post Anesthesia Evaluation Post Anesthesia Evaluation Vital Signs: 141/76, 97, 18, 97.7F, 96%RA Anesthesia: General Mental Status: Awake Pain Control: Satisfactory Nausea/Vomiting: None Hydration: Adequate Anesthesia-Related Issues: No Anes. Related Issues
[2020-01-18] MEDS: 0.9 % Sodium Chloride 1,000 ML 125 ML IVCONT (08:10)
[2020-01-18] MEDS: ondansetron HCL 4 MG/2 ML VIAL IVPUSH (08:20)
[2020-01-18] MEDS: 0.9 % Sodium Chloride Flush 3 ML SYRINGE IVFLUSH (08:20)
[2020-01-18] MEDS: lamoTRIgine 100 MG TABLET 200 MG PO (08:20)
[2020-01-18] MEDS: Levothyroxine Sodium 88 MCG TABLET PO (08:20)
--- NOTE | 2020-01-18 09:37 | PM.PNGS ---
Subjective Subjective Interval history: Reports incisional tenderness but feels much better than prior to surgery. She denies any nausea vomiting. She is tolerating regular diet. She was just recently taught how to perform the incentive spirometry and is now using it. She has been ambulating in her room. Vital signs are within normal limits. Physical Exam Vital Signs: Vital Signs: Vital Signs Temp Pulse Resp BP Pulse Ox 01/17/20 15:02 97.7 F 97 18 141/76 H 96 01/17/20 14:25 85 17 109/55 L 96 01/17/20 14:20 95 15 128/68 96 01/17/20 14:15 104 H 13 131/74 92 01/17/20 14:11 17 01/17/20 14:10 103 H 11 L 121/81 94 01/17/20 14:05 99.4 F 112 H 18 145/81 H 96 Body Mass Index 34.2 Const: General: cooperative, healthy appearing, comfortable and no acute distress GI: Other: incision clean dry intact with Dermabond in place. Inspection: Yes abdominal wall ecchymosis ( Mild in the infraumbilical region near the incision site.) and Yes obesity Palpation (GI): Soft to palpation, Tenderness to palpation present (GI) ( Appropriate incisional), no guarding and not rigid Extrem: General: Yes normal to inspection, Yes full ROM, Yes no clubbing, cyanosis or edema and Yes no pedal edema Progress Note: A&P Assessment and plan (1) S/P laparoscopic appendectomy: Status: Acute Assessment and Plan: Patient is postop day 1. Status post laparoscopic appendectomy doing very well postoperatively. Patient will be discharged home today to follow up with me in the office in 2 weeks time frame. Fall Risk Details Current Medications: Current Medications Generic Name Dose Route Start Last Admin Trade Name Freq PRN Reason Stop Dose Admin Acetaminophen 650 mg 01/17/20 07:59 01/17/20 21:42 Acetaminophen 325 Mg Tablet PO 650 mg Q4H PRN Administration Pain and Fever Hydromorphone HCl 0.5 mg 01/17/20 07:59 01/18/20 08:20 Hydromorphone Hcl 0.5 Mg/0.5 Ml Syringe IVPUSH 0.5 mg Q2H PRN Administration Pain, Moderate (Pain Scale 4-6 Sodium Chloride 1,000 mls @ 125 mls/hr 01/17/20 08:00 01/18/20 08:10 Ns IVCONT 125 mls/hr .Q8H BRENTON Administration Lamotrigine 200 mg 01/18/20 09:00 01/18/20 08:20 Lamotrigine 100 Mg Tablet PO 200 mg DAILY BRENTON Administration Levothyroxine Sodium 88 mcg 01/18/20 09:00 01/18/20 08:20 Levothyroxine Sodium 88 Mcg Tablet PO 88 mcg DAILY@0600 BR[place]ON Administration Ondansetron HCl 4 mg 01/17/20 08:04 01/18/20 08:20 Ondansetron Hcl 4 Mg/2 Ml Vial IVPUSH 4 mg Q4H PRN Administration Nausea Oxycodone HCl 5 mg 01/17/20 08:04 01/17/20 14:11 Oxycodone Hcl Immed Release 5 Mg Tablet PO 5 mg Q3H PRN Administration Pain, Moderate (Pain Scale 4-6 Oxycodone HCl 10 mg 01/17/20 08:04 01/17/20 20:30 Oxycodone Hcl Immed Release 5 Mg Tablet PO 10 mg Q3H PRN Administration Pain, Severe (Pain Scale 7-10) Sodium Chloride 3 ml 01/17/20 08:00 01/18/20 08:20 0.9 % Sodium Chloride Flush 3 Ml Syringe IVFLUSH 3 ml QSHIFT [place] Administration Time Spent With Patient Time: Total time spent is greater than 50% in coordination of care (as documented) at patient's floor/unit and/or counseling patient: Time with patient: less than 15 minutes
--- NOTE | 2020-01-18 10:00 | PM.DS ---
DS: Providers Provider Date of admission: 01/17/20 07:59 <Cathleen Loya PA-C - Last Filed: 01/18/20 10:06> Primary care physician: Unknown Physician <Cathleen Loya PA-C - Last Filed: 01/18/20 10:06> DS: Diagnosis Discharge Diagnosis (1) S/P laparoscopic appendectomy: Status: Acute <NOBLE Ruiz Last Filed: 01/18/20 10:06> (2) Acute appendicitis: Status: Acute <Cathleen Loya PA-C - Last Filed: 01/18/20 10:06> DS: Summary Hospital Course Hospital Course: Brief HPI: This is a 34-year-old lady previously healthy with the exception of pelvic pain from endometriosis who developed periumbilical pain 2 days ago. She reports the pain was initially a 5/10 and progressed over the course of the last 48 hours. She reports pain localized to the right lower quadrant early this morning. Her pain is now in 9 to 10/10 on a pain scale. She had associated nausea and vomiting at home. Her last meal was rice at 6 in the evening yesterday. She reports having diarrhea which is a change from her normal bowel habits. Last stool was this morning in the emergency department. She reports no alleviating factors but reports any kind of movement using the abdominal muscles worsens the pain. She reports feeling hot and cold at home but did not have a fever. She denies prior episodes. Patient was seen in the emergency department evaluated and found have white blood cell count of 14.4. She had a CT scan abdomen pelvis was that showed a mostly fluid filled appendix with a few appendicoliths and 1 at the base of the appendix with dilation of the appendix and self surrounding fat stranding. Patient also reports over a year and a half of chronic opioid use for treatment of her endometriosis. She takes oxycodone 10mg TID. The patient was admitted to the surgical service under Dr. Sky. It was recommended to proceed with a laparoscopic appendectomy for treatment of acute appendicitis. She agreed and was added onto the OR schedule. On 01/17/20, a laparoscopic appendectomy was performed by Dr. Sky without complication. She tolerated the procedure well and was admitted to the medical/surgical floor for observation following. She had an uncomplicated recovery course. On POD #1, she was clinically appearing well with pain adequately controlled on PO analgesics. She was tolerating a solid and OOB. Her abdomen exam was benign with clean incisions and appropriate post op tenderness. She felt ready for discharge. She was discharged to home on 01/18/20 in stable condition. Post operative pain management was discussed with the patient and she was given PO dilaudid to be used as needed with her current narcotic regimen. <NOBLE Ruiz Last Filed: 01/18/20 10:06> Status at Discharge Functional status at discharge: independent ambulation <NOBLE Ruiz Last Filed: 01/18/20 10:06> Overall status at discharge: patient is progressing back to baseline <NOBLE Ruiz Last Filed: 01/18/20 10:06> Time Spent with Patient Time attestation: Total time spent providing and/or coordinating discharge services: <NOBLE Ruiz Last Filed: 01/18/20 10:06> Time spent: Greater than 30 minutes <NOBLE Ruiz Last Filed: 01/18/20 10:06> Specific discharge activities: No heavy lifting <NOBLE Ruiz Last Filed: 01/18/20 10:06> Physical Exam Vital Signs: Vital Signs: Vital Signs Temp Pulse Resp BP Pulse Ox 01/17/20 15:02 97.7 F 97 18 141/76 H 96 01/17/20 14:25 85 17 109/55 L 96 01/17/20 14:20 95 15 128/68 96 01/17/20 14:15 104 H 13 131/74 92 01/17/20 14:11 17 01/17/20 14:10 103 H 11 L 121/81 94 01/17/20 14:05 99.4 F 112 H 18 145/81 H 96 Body Mass Index 34.2 <NOBLE Ruiz Last Filed: 01/18/20 10:06> Const: General: comfortable, no acute distress and alert <NOBLE Ruiz Last Filed: 01/18/20 10:06> Orientation/consciousness: patient oriented x3 <NOBLE Ruiz Last Filed: 01/18/20 10:06> Resp: Effort & Inspection: normal respiratory effort <aCthleen Loya PA-C Alexandrea Last Filed: 01/18/20 10:06> Cardio: Rate: regular rate <NOBLE Ruiz Last Filed: 01/18/20 10:06> GI: Inspection: Yes incision (clean, some ecchymosis at umbilicus) <NOBLE Ruiz Last Filed: 01/18/20 10:06> Palpation (GI): Soft to palpation, Tenderness to palpation present (GI) (incisional, mild), no guarding, not rigid and No Rebound tenderness present <NOBLE Ruiz Last Filed: 01/18/20 10:06> Skin: General skin exam: no rashes or lesions noted <NOBLE Ruiz Filed: 01/18/20 10:06> Neuro: General: patient oriented x3 <Cathleen Loya PA-C Alexandrea Last Filed: 01/18/20 10:06> DS: Data Data Completed and Pending Pending studies at discharge: Pending at discharge 01/17/20 13:46 Surgical [PTH] Routine <NOBLE Ruiz Last Filed: 01/18/20 10:06> Labs on day of discharge: Labs from last 24 hours 01/17/20 08:51 Coronavirus (PCR) NEGATIVE <NOBLE Ruiz Last Filed: 01/18/20 10:06> Discharge Plan Discharge Patient Disposition: Home, Self-Care <NOBLE Ruiz Last Filed: 01/18/20 10:06> Referrals: Physician,Unknown [Primary Care Provider] - <NOBLE Ruiz Last Filed: 01/18/20 10:06> Discharge Medications: New hydromorphone [Dilaudid] 2 mg tablet 2 mg PO Q4-6H PRN (Reason: pain (scale score 7-10)) Qty: 16 RF: 0 Continued lamotrigine 200 mg Tablet 200 mg PO DAILY RF: 0 levothyroxine 88 mcg Tablet 88 mcg PO DAILY RF: 0 <Cathleen Loya PA-C - Last Filed: 01/18/20 10:06> Discharge Orders: Discharge Order (Routine); Ordered 01/18/20 Ordered By: Cathleen Loya <Cathleen Loya PA-C - Last Filed: 01/18/20 10:06> Diet: advance to your usual diet <Cathleen Loya PA-C - Last Filed: 01/18/20 10:06> advance to your usual diet <Annalise Sky MD - Last Filed: 01/18/20 13:00> Activity on Discharge: No heavy lifting <Cathleen Loya PA-C - Last Filed: 01/18/20 10:06> No heavy lifting <Annalise Sky MD - Last Filed: 01/18/20 13:00> Patient Instructions: Laparoscopic Appendectomy (DC) <Cathleen Loya PA-C - Last Filed: 01/18/20 10:06> Discharge Date/Time: 01/18/20 10:27 <Cathleen Loya PA-C - Last Filed: 01/18/20 10:06> Activity Restrictions/Additional Instructions: no lifting greater than 5-10 lb for the next 4 weeks. You may shower but you should avoid all hot tubs, baths, swimming pools. You should follow up with Dr. Sky in the office in 2 weeks time frame. You should call the office at [phone] to schedule follow-up appointment. you should also call the office with any questions or concerns such as increasing abdominal pain, fever, chills, shortness of breath, chest pain, leg pain, or leg swelling. You may not have any refills of narcotic pain medications following discharge. You may take Tylenol 1000 mg every 6 hours around the clock to help with her pain. You may use Dilaudid in addition as needed. You should use a stool softener while your taking the narcotic pain medication. You should use milk of magnesia if you do not have a bowel movement within 2 days of discharge. <Cathleen Loya PA-C - Last Filed: 01/18/20 10:06> Visit Report Forms: Patient Portal Discharge page <Cathleen Loya PA-C - Last Filed: 01/18/20 10:06> Care Plan Goals: Return to normal state of health <NOBLE Ruiz Last Filed: 01/18/20 10:06> Health Concerns: appendicitis <Cathleen Loya PA-C - Last Filed: 01/18/20 10:06> Plan of Treatment: patient is status post laparoscopic appendectomy <NOBLE Ruiz Last Filed: 01/18/20 10:06>
--- NOTE | 2020-01-18 11:04 | MHC.CM.PN ---
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 MEDICAL RECORD REVIEWED , CASE DISCUSSED WITH STAFF NURSE , PATIENT WILL BE DISCHARGED HOME TODAY WITH NO SERVCIES (NONE ORDERED ) PCP AND SURGICAL FOLLOW UP POST HOSPITAL DISCHARGE Initialized on 01/18/20 10:58 - END OF NOTE
== END 2020-01-18 10:27 | disposition home or self-care (01) | DRG 343 ==
LOC: HO.ED 07:12 → HO.SSS 07:18 → HO.S3 08:23
PROVIDERS: Admitting Provider Surgery; Emergency Provider Student in an Organized Health Care Education/Training Program; Visit Provider Surgery
PROC: 0DTJ4ZZ Resection of Appendix, Percutaneous Endoscopic Approach (ICD-10-PCS; CPT 44970; principal; 2020-01-17 12:20)
DX: K35.80 Unspecified acute appendicitis (principal); K38.1 Appendicular concretions; E03.9 Hypothyroidism, unspecified; F31.9 Bipolar disorder, unspecified; N80.9 Endometriosis, unspecified; E66.9 Obesity, unspecified; Z20.828 Contact with and (suspected) exposure to other viral communicable diseases; Z68.34 Body mass index [BMI] 34.0-34.9, adult; Z88.5 Allergy status to narcotic agent; Z88.6 Allergy status to analgesic agent; Z79.890 Hormone replacement therapy; Z79.899 Other long term (current) drug therapy
CPT/HCPCS: 36415; 74176; 80053; 81001; 81025; 85025; 87635; 88304; 96361; 96365; 96375; 99285; J0131; J0330; J1100; J1170; J2250; J2405; J3010

== ENCOUNTER → 2020-02-01 12:26 | Outpatient (BNVA) | payer OTHER, SELFPAY | PROVIDERS: PCP Family Medicine; Visit Provider Physician Assistant | DX: Z90.49 Acquired absence of other specified parts of digestive tract (principal) | CPT/HCPCS: 99212 ==

== ENCOUNTER 2020-09-18 01:09 | Emergency (ER) | payer MEDICARE, OTHER, SELFPAY ==
[2020-09-18 01:20] VITALS: BP 139/86; PULSE 105; RESP 18; TEMP 36.6; O2SAT 98; BMI 32.2
--- NOTE | 2020-09-18 02:45 | ED.HA ---
HPI - Headache General Chief Complaint: Headache Stated Complaint: migraine for abt week Time Seen by Provider: 09/18/20 02:43 Source: patient Mode of arrival: ambulatory History of Present Illness HPI Narrative: Is a 35-year-old female who presents to the ED with exacerbation of her underlying migraine condition that she states has developed in the normal fashion and progressed as per her ?typical migraines?. Patient endorses that she received Botox injections last Friday, but instead of helping they seem to have not been beneficial this time and she had made multiple attempts to reach [facility] without [facility]. Otherwise, she denies any speech/visual/auditory dysfunction other than photosensitivity and some nausea. Otherwise she denies any unilateral symptoms such as weakness/tingling/numbness. Related Data Home Medications Medication Instructions Recorded Confirmed lamotrigine 200 mg PO DAILY 01/17/20 01/17/20 levothyroxine 88 mcg tablet See Rx Instructions PO DAILY 01/25/20 Allergies Allergy/AdvReac Type Severity Reaction Status Date / Time ibuprofen [From MOTRIN] Allergy Unknown HIVES Verified 01/17/20 10:12 tramadol [TRAMADOL] Allergy Unknown HIVES Verified 01/17/20 10:12 diphenhydramine AdvReac Unknown BODY PAIN Verified 01/17/20 10:21 [From BENADRYL] morphine [MORPHINE] AdvReac Unknown BACK Verified 01/17/20 10:21 MUSCLE SPASMS From TORADOL Allergy Unknown HIVES Uncoded 01/17/20 10:12 Review of Systems Review of Systems: Pertinent positives and negatives as stated in HPI 10 point review of systems is otherwise negative. [facility] Past Medical History Source: nursing notes reviewed Medical History Bipolar disorder Endometriosis Hypothyroidism Obesity (BMI 30-39.9) Posterior cranial fossa malformation, hemangioma, arterial anomaly, cardiac defect, eye abnormality, and sternal cleft or supraumbilical raphe syndrome Surgical History H/O lithotripsy H/O: History of skin graft S/P laparoscopic appendectomy S/P laparoscopic cholecystectomy S/P left knee arthroscopy Family History Family History Father No problems noted. Mother No problems noted. Paternal Grandfather History of bone cancer Sister No problems noted. Sister No problems noted. Daughter No problems noted. Daughter No problems noted. Social History Social History Household Members: Spouse Housing: House Alcohol intake: never Second Hand Smoke Exposure: No Advance Directives: No Advance Directives Information Provided: No Patient : No service: Yes (DISABLED. [employer] X 6 YEARS) Current occupational status: unemployed Physical Exam Vital Signs: Vital Signs: Last Vital Signs Temp 98 F 09/18/20 01:20 Pulse 105 H 09/18/20 01:20 Resp 18 09/18/20 01:20 BP 139/86 09/18/20 01:20 Pulse Ox 98 09/18/20 01:20 Body Mass Index 32.2 VITAL SIGNS: Reviewed. GENERAL: Well developed, well nourished, in no acute distress. HEAD: Normocephalic/atraumatic EYES: PERRLA, EOMI OROPHARYNX: no oral lesions noted, posterior pharynx clear LUNGS: Normal breath sounds. No adventitious sounds or accessory muscle use. SpO2<98> CARDIOVASCULAR: Regular rate and rhythm without noted murmurs ABDOMEN: Soft, non-tender, non-distended with bowel sounds. NEUROLOGIC: Alert and oriented x 4. Strength and sensation to light touch were grossly intact x 4, no pronator drift, no facial asymmetry, cranial nerves 2-12 grossly intact.. Course Course Course Narrative: This is a 35-year-old female with history and clinical presentation consistent with migraine headache. Of investigations negative for acute findings and migraine cocktail was initiated and on re-evaluation patient has had significant reduction in her symptoms. She will be discharged in stable condition and [facility]. MDM - Headache Lab Data Labs: Lab Results 09/18/20 09/18/20 Range/Units 03:24 03:24 Urine Color YELLOW Urine Appearance CLEAR Urine pH 6.0 (5.0-8.0) Ur Specific [place] >= 1.030 H (1.005-1.025) Urine Protein NEG (NEG-TRACE) MG/DL Urine Glucose (UA) NEG (NEG) MG/DL Urine Ketones NEG (NEG) MG/DL Urine Blood TRACE (NEG) Urine Nitrite NEG (NEG) Ur Leukocyte Esterase NEG (NEG) Urine RBC 0-2 (0) /HPF Urine WBC 0 (0-4) /HPF Ur Squamous Epith Cells 2+ /LPF Urine Bacteria 1+ /LPF Urine Mucus 1+ /LPF Urine Test NEGATIVE (NEGATIVE) Discharge Plan Discharge Clinical Impression: Migraine Patient Disposition: Home, Self-Care Instructions: Migraine Headache (ED) Additional Instructions: 1. Please resume all home medications as prescribed. 2. [facility] and further outpatient management. Return to the ER for acute worsening of symptoms. Prescriptions: No Action levothyroxine 88 mcg tablet See Rx Instructions PO DAILY RF: 0 lamotrigine 200 mg Tablet 200 mg PO DAILY RF: 0 Referrals: Chikis Appiah MD [Primary Care Provider] - 2 days
[2020-09-18] MEDS: Metoclopramide HCl 10 MG/2 ML VIAL IVPUSH (03:32)
[2020-09-18] MEDS: 0.9 % Sodium Chloride 1,000 ML 999 ML IV (03:33)
[2020-09-18] MEDS: Acetaminophen 325 MG TABLET 975 MG PO (03:33)
[2020-09-18 03:39] LABS: Appearance Urine CLEAR; Color Urine YELLOW; Glucose Urine UA NEG (NEG); Leukocyte Esterase Urine NEG (NEG); Nitrite Urine NEG (NEG); Specific Gravity - Urine >= 1.030 (1.005-1.025); Urine Blood TRACE (NEG); Urine Ketones NEG (NEG); Urine Protein NEG (NEG-TRACE)
[2020-09-18 03:40] LABS: UPreg QC Valid YES; Urine Pregnancy NEGATIVE (NEGATIVE)
[2020-09-18 03:44] LABS: Bacteria Urine 1+ /LPF; Mucus Urine 1+ /LPF; RBC Urine 0-2 /HPF (0); Squamous Epithelial Cell Urine 2+ /LPF; WBC Urine 0 /HPF (0-4)
[2020-09-18] MEDS: Butalb/Acetamin/Caff 50/325/40 TABLET 1 TAB PO (04:32)
[2020-09-18 06:00] VITALS: BP 121/69; PULSE 74; RESP 18; O2SAT 100
== END 2020-09-18 06:07 | disposition home or self-care (01) ==
PROVIDERS: Emergency Provider Student in an Organized Health Care Education/Training Program; PCP Family Medicine
DX: G43.009 Migraine without aura, not intractable, without status migrainosus (principal)
CPT/HCPCS: 81001; 81025; 96361; 96374; 99284; J2765

== ENCOUNTER 2021-02-12 16:13 | Emergency (ER) | payer OTHER, MEDICARE, SELFPAY ==
--- NOTE | ~2021-02-12 | CT_ITS ---
EXAMINATION: CT HEAD WITHOUT CONTRAST CLINICAL INFORMATION: Headache. COMPARISON: CT head dated from 10/09/2019. TECHNIQUE: Contiguous axial imaging was performed from the skull base to vertex without intravenous administration of contrast. This CT examination was performed using dose optimization techniques as appropriate, variously including the following: *Automated exposure control *Adjustment of mA and/or kV according to patient size (this includes techniques or standardized protocols for targeted exams where dose is matched to indication/reason for exam; i.e. extremities or head) *Use of iterative reconstruction technique DLP: 573 mGy-cm FINDINGS: There is no evidence of acute intracranial hemorrhage or edematous territorial infarction. There is no abnormal attenuation within the brain parenchyma. [place]-white matter differentiation is preserved. The ventricles are normal in size and configuration. No evidence for obstructive hydrocephalus. No abnormal mass effect or midline shift. No extra-axial fluid collections. No acute soft tissue or osseous abnormalities. Small mucous retention cyst in the right sphenoidal sinus. Other paranasal sinuses and mastoids are clear. CT/CT head/brain wo con IMPRESSION: No evidence of acute intracranial hemorrhage or edematous territorial infarction.
[2021-02-12 16:31] VITALS: BP 123/96; PULSE 78; RESP 22; TEMP 36.8; O2SAT 100; BMI 31.1
--- NOTE | 2021-02-12 16:36 | PC.NURSE ---
charge nurse notified of patient history
--- NOTE | 2021-02-12 17:21 | ED_ITS ---
HPI - Headache General Chief Complaint: Headache Stated Complaint: migraine Time Seen by Provider: 02/12/21 17:02 Source: patient and old records reviewed History of Present Illness HPI Narrative: Patient states she is presenting with a 10/10 generalized headache, worse on the right. She has a history of both migraine headache as well as an intracranial hemorrhage secondary to hemangioma several years ago. She states this 1 feels more like the intracranial hemorrhage. Positive nausea and vomiting which is intractable. Symptoms have been ongoing for the past day. No recent traumas. No recent illnesses. No causative factors. At home she states she is already taking Reglan, sumatriptan, Tylenol, and Fioricet without improvement. Her last Botox treatment was in December. Her neurologist is through the [place] Related Data Home Medications Medication Instructions Recorded Confirmed lamotrigine 200 mg tablet 200 mg PO DAILY 01/17/20 01/17/20 levothyroxine 88 mcg tablet See Rx Instructions PO DAILY 01/25/20 Allergies Allergy/AdvReac Type Severity Reaction Status Date / Time ibuprofen [From MOTRIN] Allergy Unknown HIVES Verified 02/12/21 16:30 tramadol [TRAMADOL] Allergy Unknown HIVES Verified 02/12/21 16:30 diphenhydramine AdvReac Unknown BODY PAIN Verified 02/12/21 16:30 [From BENADRYL] morphine [MORPHINE] AdvReac Unknown BACK Verified 02/12/21 16:30 MUSCLE SPASMS From TORADOL Allergy Unknown HIVES Uncoded 01/17/20 10:12 Review of Systems Constitutional: Comments: No fevers or chills Eyes: Comments: Positive photophobia Cardiovascular: Comments: No chest pain Respiratory: Comments: No cough or difficulty breathing Gastrointestinal: Comments: Intractable vomiting. No significant abdominal pain Neurologic: Comments: No focal weakness [facility] Past Medical History Medical History (Updated 02/12/21 @ 18:32 by Jelani Pham MD) Bipolar disorder Endometriosis Hypothyroidism Intracranial bleed Migraine Obesity (BMI 30-39.9) Posterior cranial fossa malformation, hemangioma, arterial anomaly, cardiac defect, eye abnormality, and sternal cleft or supraumbilical raphe syndrome Surgical History H/O lithotripsy H/O: History of skin graft S/P laparoscopic appendectomy S/P laparoscopic cholecystectomy S/P left knee arthroscopy Family History Family History Father No problems noted. Mother No problems noted. Paternal Grandfather History of bone cancer Sister No problems noted. Sister No problems noted. Daughter No problems noted. Daughter No problems noted. Social History Social History Household Members: Spouse Housing: House Alcohol intake: never Second Hand Smoke Exposure: No Use of substances other than those prescribed or required for medical reasons: No Advance Directives: No Advance Directives Information Provided: Yes Patient : No service: Yes (DISABLED. [employer] X 6 YEARS) Current occupational status: unemployed Physical Exam Vital Signs: Vital Signs: Last Vital Signs Temp 98.3 F 02/12/21 16:31 Pulse 70 02/12/21 19:05 Resp 18 02/12/21 19:09 BP 149/86 H 02/12/21 19:05 Pulse Ox 100 02/12/21 16:31 Body Mass Index 31.1 Const: Other: Holding emesis bag and actively heaving. Appears very uncomfortable Neck: Other: No meningismus. Able to flex Resp: Other: No respiratory distress Cardio: Other: Denies chest pain GI: Other: Vomiting without diarrhea or significant abdominal pain Skin: Other: No rash Neuro: Other: Headache without focal neuro deficit Course Course Course Narrative: Migraine versus intracranial hemorrhage IV Reglan IV fluids Patient is allergic to NSAIDs Stat CT scan ordered 6:[address] scan shows no evidence of intracranial hemorrhage. Patient reassessed on. She states she is still in a lot of pain and having a lo t of nausea. She states the last time she had pain like this was 2 years ago. At that time she got Dilaudid and Zofran. She states she has not Dilaudid since that episode. 7:37 p.m.. Patient is feeling considerably better. She still has some headache but the nausea is gone and she is able to tolerate p.o. liquids. Stable for discharge home MDM - Headache Lab Data Result diagrams: 02/12/21 17:37 02/12/21 17:37 Labs: Lab Results 02/12/21 02/12/21 Range/Units 17:37 17:37 WBC 19.5 H (4.8-10.8) X10*3/uL RBC 5.33 (4.20-5.50) X10*6/uL Hgb 14.8 (12.0-16.0) g/dl Hct 44.1 (37.0-47.0) % MCV 82.7 (80.0-98.0) fL MCH 27.8 (27.0-33.0) pg MCHC 33.6 (31.0-35.0) g/dl RDW 15.1 (11.0-16.0) % Plt Count 352 (160-400) X10*3/uL MPV 11.3 (9.4-12.3) fL Immature Gran % (Auto) 0.5 H (0.0-0.4) % Neut % (Auto) 90.0 H (45-73) % Lymph % (Auto) 6.2 L (20-40) % [place] % (Auto) 2.8 (2-11) % Eos % (Auto) 0.1 (0-4) % Baso % (Auto) 0.4 (0-2) % Lymph # (Auto) 1.2 (1.2-4.9) X10*3/uL [place] # (Auto) 0.5 (0.1-1.2) X10*3/uL Eos # (Auto) 0.0 (0.0-0.4) X10*3/uL Baso # (Auto) 0.1 (0.0-0.2) X10*3/uL Abs Immat Gran (auto) 0.09 H (0.00-0.03) X10*3/uL Absolute Neuts (auto) 17.5 H (2.0-8.3) x10*3/uL Absolute Nucleated RBC 0.000 (0.0-0.012) X10*3/uL Nucleated RBC % (auto) 0.0 (0.0-0.2) /100WBC Sodium 136 (135-145) mmol/L Potassium 4.6 (3.3-5.1) mmol/L Chloride 104 (96-108) mmol/L Carbon Dioxide 21 L (22-29) mmol/L Anion Gap 16 (12-20) BUN 10 (9-16) mg/dL Creatinine 0.82 (0.5-1.4) mg/dL Estim Creat Clear Calc 80.6 Estimated GFR > 60 Random Glucose 141 H (60-115) mg/dL Calcium 9.6 (8.4-10.2) mg/dL Total Bilirubin 0.4 (0.0-1.0) mg/dL AST 38 H D (5-31) U/L ALT 32 H (0-31) U/L Alkaline Phosphatase 83 (39-117) U/L Total Protein 8.2 H (6.5-8.0) g/dL Albumin 4.6 (3.5-5.0) g/dL Discharge Plan Discharge Clinical Impression: Migraine Qualifiers: Migraine type: unspecified Status migrainosus presence: with status migrainosus Intractability: intractable Qualified Code(s): G43.911 - Migraine, unspecified, intractable, with status migrainosus Patient Disposition: Home, Self-Care Instructions: Migraine Headache (ED) Additional Instructions: Continue current medications as instructed and as needed. Follow-up with your neurologist Prescriptions: No Action levothyroxine 88 mcg tablet See Rx Instructions PO DAILY RF: 0 lamotrigine 200 mg Tablet 200 mg PO DAILY RF: 0
[2021-02-12 17:41] LABS: MANUAL DIFF FLAG NO
[2021-02-12 17:50] LABS: Basophils Absolute Auto 0.1 X10*3/uL (0.0-0.2); Basophils Percent Auto 0.4 % (0-2); Eosinophils Percent Auto 0.1 % (0-4); Hematocrit 44.1 % (37.0-47.0); Hemoglobin 14.8 g/dl (12.0-16.0); Imm Gran Abs Auto 0.09 X10*3/uL (0.00-0.03); Imm Gran Pct Auto 0.5 % (0.0-0.4); Lymphocytes Absolute Auto 1.2 X10*3/uL (1.2-4.9); Lymphocytes Percent Auto 6.2 % (20-40); Mean Corpuscular HGB Conc 33.6 g/dl (31.0-35.0); Mean Corpuscular Hemoglobin 27.8 pg (27.0-33.0); Mean Corpuscular Volume 82.7 fL (80.0-98.0); Mean Platelet Volume 11.3 fL (9.4-12.3); Monocytes Absolute Auto 0.5 X10*3/uL (0.1-1.2); Monocytes Percent Auto 2.8 % (2-11); Neutrophils Absolute Auto 17.5 x10*3/uL (2.0-8.3); Platelet Count 352 X10*3/uL (160-400); Red Blood Count 5.33 X10*6/uL (4.20-5.50); Red Cell Distribution Width 15.1 % (11.0-16.0); White Blood Count 19.5 X10*3/uL (4.8-10.8)
[2021-02-12] MEDS: 0.9 % Sodium Chloride 500 ML IV (17:54)
[2021-02-12] MEDS: Metoclopramide HCl 10 MG/2 ML VIAL IVPUSH (17:54)
[2021-02-12 18:08] LABS: Alanine Aminotransferase 32 U/L (0-31); Albumin Level 4.6 g/dL (3.5-5.0); Alkaline Phosphatase 83 U/L (39-117); Anion Gap 16 (12-20); Aspartate Amino Transferase 38 U/L (5-31); Bilirubin Total 0.4 mg/dL (0.0-1.0); Blood Urea Nitrogen 10 mg/dL (9-16); Calcium 9.6 mg/dL (8.4-10.2); Carbon Dioxide 21 mmol/L (22-29); Chloride 104 mmol/L (96-108); Creatinine Clr Calc Pharmacy 80.6; Estimated Glomerular Filt Rate > 60; Glucose Random 141 mg/dL (60-115); Potassium 4.6 mmol/L (3.3-5.1); Sodium 136 mmol/L (135-145); Total Protein 8.2 g/dL (6.5-8.0)
[2021-02-12 19:05] VITALS: BP 149/86; PULSE 70; RESP 18
[2021-02-12] MEDS: ondansetron HCL 4 MG/2 ML VIAL IVPUSH (19:08)
[2021-02-12 19:09] VITALS: RESP 18
[2021-02-12] MEDS: HYDROmorphone HCl 1 MG/ML SYRINGE IVPUSH (19:09)
--- NOTE | 2021-02-12 19:20 | PC.NURSE ---
PT medicated per MAY. Complaining of severe headache, nausea and RLS at this time.
[2021-02-12 20:15] VITALS: BP 156/84; PULSE 76; RESP 16; O2SAT 98
== END 2021-02-12 20:18 | disposition home or self-care (01) ==
PROVIDERS: Emergency Provider Emergency Medicine
DX: G43.911 Migraine, unspecified, intractable, with status migrainosus (principal); Z79.899 Other long term (current) drug therapy
CPT/HCPCS: 36415; 70450; 80053; 85025; 96361; 96374; 96375; 99284; J1170; J2405; J2765

== ENCOUNTER 2022-02-06 18:25 | Emergency (ER) | payer OTHER, SELFPAY ==
--- NOTE | 2022-02-06 19:39 | ED_ITS ---
HPI - General Adult General Stated complaint: prev. surgery, incision opened Source: patient Mode of arrival: ambulatory Limitations: no limitations History of Present Illness HPI narrative: pt comes to the ed c/o abd pain at the incision site, LLQ. on jan 09, pt had laparoscopic surgery for endoetriosis removal. pt has seen drainage, serosanguinous, no pus. denies erythema. surgery done ins [facility] in [facility]. pt called her surgeon, told her to follow up with them in 2 months Related Data Home Medications Medication Instructions Recorded Confirmed lamotrigine 200 mg tablet 200 mg PO DAILY 01/17/20 01/17/20 levothyroxine 88 mcg tablet See Rx Instructions PO DAILY 01/25/20 Allergies Allergy/AdvReac Type Severity Reaction Status Date / Time ibuprofen [From MOTRIN] Allergy Unknown HIVES Verified 02/12/21 16:30 tramadol [TRAMADOL] Allergy Unknown HIVES Verified 02/12/21 16:30 diphenhydramine AdvReac Unknown BODY PAIN Verified 02/12/21 16:30 [From BENADRYL] morphine [MORPHINE] AdvReac Unknown BACK Verified 02/12/21 16:30 MUSCLE SPASMS From TORADOL Allergy Unknown HIVES Uncoded 01/17/20 10:12 Review of Systems Review of Systems: Constitutional : No Weight loss, No Fever, No Chills, No Night Sweats, No Fatigue, No Malaise ENT/Mouth : No Hearing loss, No Ear Pain, No Nasal Congestion, No Sinus Pain, No Hoarseness, No sore throat, No Rhinorrhea, No Swallowing Difficulty Eyes: No Eye Pain, No Swelling, No Redness, No Foreign Body, No Discharge, No Vision Changes Cardiovascular : No Chest Pain, No SOB, No Dyspnea on Exertion, No Orthopnea, No Edema, No Palpitations Respiratory : No Cough, No Sputum, No Wheezing, No Smoke Exposure, No Dyspnea Gastrointestinal : No Nausea, No Vomiting, No Diarrhea, No Constipation, No abdominal Pain, No Hematochezia, No Melena Genitourinary : no irregular bleeding, No Dysuria, No Urinary Frequency, No Hematuria, No Urinary Incontinence, No Urgency, No Flank Pain, No Urinary Flow Changes, No Hesitancy Musculoskeletal : No joint pain, No Myalgias, No Joint Swelling Skin : non adherent wound in LLQ Neuro : No Weakness, No Numbness, No Paresthesias, No Loss of Consciousness, No Dizziness, No Headache Psych : No Anxiety/Panic, No Depression, No SI/HI/AH/VH, No Social Issues, Heme/Lymph: No Bruising, No Bleeding,No Lymphadenopathy Endocrine : No Polyuria, No Polydipsia, No Temperature Intolerance [facility] Past Medical History Medical History Bipolar disorder Endometriosis Hypothyroidism Intracranial bleed Migraine Obesity (BMI 30-39.9) Posterior cranial fossa malformation, hemangioma, arterial anomaly, cardiac defect, eye abnormality, and sternal cleft or supraumbilical raphe syndrome Surgical History H/O lithotripsy H/O: History of skin graft S/P laparoscopic appendectomy S/P laparoscopic cholecystectomy S/P left knee arthroscopy Family History Family History Father No problems noted. Mother No problems noted. Paternal Grandfather History of bone cancer Sister No problems noted. Sister No problems noted. Daughter No problems noted. Daughter No problems noted. Social History Social History Household Members: Spouse Housing: House Alcohol intake: never Second Hand Smoke Exposure: No service: Yes (DISABLED. [employer] X 6 YEARS) Current occupational status: unemployed Physical Exam ED Const Other: Appearance: Alert. Oriented X3. No acute distress. Eyes: Pupils equal, round and reactive to light. ENT: Pharynx normal. Neck: Normal inspection. Neck supple. No lymph nodes noted. No crepitus CVS: Normal heart rate and rhythm. Pulses normal. Normal S1 and S2 Respiratory: No respiratory distress. Breath sounds normal. No Wheezing. No rales Abdomen: Soft and nontender. No rigidity. No distention. Skin: Skin warm and dry. 0.5 cm non adherent surgical wound in LLQ, no infection, no drainage Extremities: No lower extremity edema. No Lacerations. No Rash Neuro: Oriented X 3. No motor deficit. No sensory deficit. Moving all extremities. No slurred speech. CN 2 through 12 grossly intact Psych: calm, cooperative, normal affect Course Course Course Narrative: discussed with pt that the lesion will close by second intention, not indicated to suture/staple, it has been almost one month pt requesting pain, meds, allergic to nsaidds, tramadol, toradol, morphine. given 1x po dilaudid pt needs to follow up with pcp and surgeon Discharge Plan Discharge Clinical Impression: Wound dehiscence Patient Disposition: Home, Self-Care Instructions: Steristrips (ED) Additional Instructions: Please follow-up with your primary care physician tomorrow. If you have any worsening or new symptoms, please return to the emergency room or call 911 Prescriptions: No Action levothyroxine 88 mcg tablet See Rx Instructions PO DAILY Rx Instructions: PO daily; lamotrigine 200 mg Tablet 200 mg PO DAILY
[2022-02-06 19:40] VITALS: BP 140/88; PULSE 99; RESP 18; TEMP 36.6; O2SAT 98; BMI 28.0
[2022-02-06] MEDS: HYDROmorphone HCl 2 MG TABLET 1 MG PO (19:51)
== END 2022-02-06 20:38 | disposition home or self-care (01) ==
LOC: HO.ED 19:58
PROVIDERS: Emergency Provider Emergency Medicine
DX: T81.30XA Disruption of wound, unspecified, initial encounter (principal); Y83.9 Surgical procedure, unspecified as the cause of abnormal reaction of the patient, or of later complication, without mention of misadventure at the time of the procedure; Y92.9 Unspecified place or not applicable; R10.32 Left lower quadrant pain; Z79.899 Other long term (current) drug therapy
CPT/HCPCS: 99282; 99283

== ENCOUNTER 2022-02-15 14:51 | Emergency (ER) | payer OTHER, SELFPAY ==
[2022-02-15 14:56] VITALS: BP 149/88; PULSE 106; RESP 16; TEMP 37.1; O2SAT 99; BMI 27.0
[2022-02-15 15:12] LABS: Hematocrit 44.2 % (37.0-47.0); Hemoglobin 15.1 g/dl (12.0-16.0); Mean Corpuscular HGB Conc 34.2 g/dl (31.0-35.0); Mean Corpuscular Hemoglobin 31.1 pg (27.0-33.0); Mean Corpuscular Volume 90.9 fL (80.0-98.0); Mean Platelet Volume 11.4 fL (9.4-12.3); Platelet Count 298 X10*3/uL (160-400); Red Blood Count 4.86 X10*6/uL (4.20-5.50); White Blood Count 11.3 X10*3/uL (4.8-10.8)
[2022-02-15 15:29] LABS: Anion Gap 16 (12-20); Blood Urea Nitrogen 9 mg/dL (9-16); Calcium 9.6 mg/dL (8.4-10.2); Carbon Dioxide 22 mmol/L (22-29); Chloride 108 mmol/L (96-108); Creatinine Clr Calc Pharmacy 65.6; Estimated Glomerular Filt Rate > 60; Glucose Random 86 mg/dL (60-115); Potassium 4.5 mmol/L (3.3-5.1); Sodium 141 mmol/L (135-145)
--- NOTE | 2022-02-15 15:34 | ED_ITS ---
HPI - Headache General Chief Complaint: Headache Stated Complaint: Migraine Time Seen by Provider: 02/15/22 15:19 Source: patient Mode of arrival: ambulatory Limitations: no limitations History of Present Illness HPI Narrative: 36-year-old female with a history of TBI, chronic migraines on Botox therapy who presents to the ER for evaluation of a migraine headache for the last 2 days. She just received her Botox treatment 2 days ago. She follows with a neurologist in [place]. She reports her headache is pounding and constant. She has taken sumatriptan, Reglan, among other medications at home with no relief. She reports some mild photosensitivity and nausea. She denies any vision changes. No neck pain or fevers. She states she has a longstanding history of migraines, worsened after she was deployed to [employer] and sustained a head injury. She usually requires ER treatment with IV Dilaudid 1-2 times per year for severe and persistent headache. MD elicited complaint: migraine Pertinent past history: migraines Onset (ago): day(s) (2) Onset description: gradually Location: generalized and band-like Severity: severe Quality & Timing: throbbing Exacerbating factors: none Relieving factors: nothing Context: occurred at rest Associated symptoms: nausea, photophobia and sensitivity to sound Treatments prior to arrival: antiemetic and migraine medication Related Data Home Medications Medication Instructions Recorded Confirmed lamotrigine 200 mg tablet 200 mg PO DAILY 01/17/20 01/17/20 levothyroxine 88 mcg tablet See Rx Instructions PO DAILY 01/25/20 Allergies Allergy/AdvReac Type Severity Reaction Status Date / Time ibuprofen [From MOTRIN] Allergy Unknown HIVES Verified 02/15/22 14:59 tramadol [TRAMADOL] Allergy Unknown HIVES Verified 02/15/22 14:59 diphenhydramine AdvReac Unknown BODY PAIN Verified 02/15/22 14:59 [From BENADRYL] morphine [MORPHINE] AdvReac Unknown BACK Verified 02/15/22 14:59 MUSCLE SPASMS From TORADOL Allergy Unknown HIVES Uncoded 02/15/22 14:59 Review of Systems Review of Systems: Constitutional: No Fever, No Chills ENT/Mouth: No sore throat, No Rhinorrhea Eyes: No Eye Pain, No Swelling, No Redness, No vision changes Cardiovascular: No Chest Pain, No SOB, No Orthopnea, No Edema Respiratory: No Cough, No Sputum, No Wheezing, No dyspnea Gastrointestinal: +Nausea, No Vomiting, No Diarrhea, No abdominal Pain Musculoskeletal: No joint pain, No Myalgias Skin: No Skin Lesions, No rash Neuro: No Weakness, No Numbness, No Dizziness, +Headache Psych: + Anxiety/Panic, No Depression Heme/Lymph: No Lymphadenopathy PMFSH Past Medical History Medical History Bipolar disorder Endometriosis Hypothyroidism Intracranial bleed Migraine Obesity (BMI 30-39.9) Posterior cranial fossa malformation, hemangioma, arterial anomaly, cardiac defect, eye abnormality, and sternal cleft or supraumbilical raphe syndrome Surgical History H/O lithotripsy H/O: History of skin graft S/P laparoscopic appendectomy S/P laparoscopic cholecystectomy S/P left knee arthroscopy Family History Family History Father No problems noted. Mother No problems noted. Paternal Grandfather History of bone cancer Sister No problems noted. Sister No problems noted. Daughter No problems noted. Daughter No problems noted. Social History Social History Household Members: Spouse Housing: House Alcohol intake: never Second Hand Smoke Exposure: No Advance Directives: No Advance Directives Information Provided: No service: Yes (DISABLED. [employer] X 6 YEARS) Current occupational status: unemployed Physical Exam Vital Signs: Vital Signs: Last Vital Signs Temp 98.7 F 02/15/22 14:56 Pulse 106 H 02/15/22 14:56 Resp 16 02/15/22 14:56 BP 149/88 H 02/15/22 14:56 Pulse Ox 99 02/15/22 14:56 O2 Del Method 02/15/22 14:56 BMI result Body Mass Index 27.0 Appearance: Alert. Oriented X3. No acute distress. Eyes: Pupils equal, round and reactive to light. ENT: Pharynx normal. Neck: Normal inspection. Neck supple. CVS: Normal heart rate and rhythm. Pulses normal. Respiratory: No respiratory distress. Breath sounds normal. Abdomen: Soft and nontender. +BS x4 Skin: Skin warm and dry. Normal skin color. Normal skin turgor. No rashes. Extremities: No lower extremity edema. Neuro: Oriented X 3. No motor deficit. No sensory deficit. CN II - XII intact, normal speech and cognition. Course Course Course Narrative: 36-year-old female with history of TBI and migraine headaches on Botox treatment, currently received 2 days ago who presents to the ER with 2 days of persistent pounding migraine headache. No focal neuro deficits. Some other previous migraines in the past. She reports requiring IV Dilaudid to ?break the cycle. ? She took her sumatriptan, Reglan and other medications today. Will g katlyn dose of IV Dilaudid, IV Zofran and reassess. No need for imaging of her head today. MDM - Headache Lab Data Result diagrams: 02/15/22 15:05 02/15/22 15:05 Labs: Lab Results 02/15/22 02/15/22 Range/Units 15:05 15:05 WBC 11.3 H (4.8-10.8) X10*3/uL RBC 4.86 (4.20-5.50) X10*6/uL Hgb 15.1 (12.0-16.0) g/dl Hct 44.2 (37.0-47.0) % MCV 90.9 (80.0-98.0) fL MCH 31.1 (27.0-33.0) pg MCHC 34.2 (31.0-35.0) g/dl RDW 13.0 (11.0-16.0) % Plt Count 298 (160-400) X10*3/uL MPV 11.4 (9.4-12.3) fL Absolute Nucleated RBC 0.000 (0.0-0.012) X10*3/uL Nucleated RBC % (auto) 0.0 (0.0-0.2) /100WBC Sodium 141 (135-145) mmol/L Potassium 4.5 (3.3-5.1) mmol/L Chloride 108 (96-108) mmol/L Carbon Dioxide 22 (22-29) mmol/L Anion Gap 16 (12-20) BUN 9 (9-16) mg/dL Creatinine 0.93 (0.5-1.4) mg/dL Estim Creat Clear Calc 65.6 Estimated GFR > 60 Random Glucose 86 (60-115) mg/dL Calcium 9.6 (8.4-10.2) mg/dL Critical Care Time Critical Care Time Critical Care Time: No Discharge Plan Discharge Clinical Impression: Migraine Patient Disposition: Home, Self-Care Instructions: Migraine Headache (ED) Additional Instructions: Follow-up with your neurologist as soon as possible. If you develop new or worsening symptoms call 911 or come back to the ER for further evaluation. Prescriptions: No Action levothyroxine 88 mcg tablet See Rx Instructions PO DAILY Rx Instructions: PO daily; lamotrigine 200 mg Tablet 200 mg PO DAILY
[2022-02-15 17:14] VITALS: BP 157/102; PULSE 90; RESP 22; TEMP 36.6; O2SAT 97
[2022-02-15 17:27] VITALS: RESP 22
[2022-02-15] MEDS: HYDROmorphone HCl 1 MG/ML SYRINGE IVPUSH (17:27)
[2022-02-15] MEDS: ondansetron HCL 4 MG/2 ML VIAL IVPUSH ×2 (17:28→20:24)
[2022-02-15 20:23] VITALS: RESP 17
[2022-02-15] MEDS: HYDROmorphone HCl 2 MG/ML VIAL IVPUSH (20:23)
[2022-02-15] MEDS: 0.9 % Sodium Chloride 1,000 ML 999 ML IV (20:23)
== END 2022-02-15 23:55 | disposition home or self-care (01) ==
PROVIDERS: Emergency Provider Emergency Medicine Emergency Medical Services; PCP Family Medicine
DX: G43.909 Migraine, unspecified, not intractable, without status migrainosus (principal); Z79.899 Other long term (current) drug therapy
CPT/HCPCS: 36415; 80048; 85027; 96361; 96374; 96375; 96376; 99284; J1170; J2405

== ENCOUNTER 2022-04-25 15:16 | Emergency (ER) | payer OTHER, SELFPAY ==
--- NOTE | ~2022-04-25 | CT_ITS ---
EXAMINATION: CT HEAD WITHOUT CONTRAST CLINICAL INFORMATION: Severe headache. COMPARISON: None. TECHNIQUE: Contiguous axial imaging was performed from the skullbase to vertex without intravenous administration of contrast. This CT examination was performed using dose optimization techniques as appropriate, variously including the following: *Automated exposure control *Adjustment of mA and/or kV according to patient size (this includes techniques or standardized protocols for targeted exams where dose is matched to indication/reason for exam; i.e. extremities or head) *Use of iterative reconstruction technique DLP: 594 mGy-cm. FINDINGS: There is no evidence of acute intracranial hemorrhage or territorial infarction. No abnormal mass effect or midline shift is seen. [place] to white matter differentiation is well preserved. No extra-axial fluid collections are identified. The ventricles are normal in size. There is no abnormal attenuation within the brain parenchyma. The osseous structures and soft tissues are normal. The mastoid air are well aerated. There is moderate left maxillary sinus mucosal thickening in the dependent fluid level. There is a small retention cyst along the lateral wall the right sphenoid sinus as well. CT/CT head/brain wo IV con IMPRESSION: No acute intracranial pathology. Moderate left maxillary sinus disease and dependent fluid level; correlate for any symptoms of acute sinusitis.
[2022-04-25 16:29] VITALS: BP 132/72; PULSE 78; RESP 18; TEMP 36.9; O2SAT 98; BMI 28.8
--- NOTE | 2022-04-25 17:33 | ED.HA ---
HPI - Headache General Chief Complaint: Headache <Belen Zamora NP - Last Filed: 04/25/22 17:35> Stated Complaint: severe headache <Belen Zamora NP - Last Filed: 04/25/22 17:35> Time Seen by Provider: 04/25/22 18:09 <Belen Zamora NP - Last Filed: 04/25/22 17:35> Source: patient <UCHE Todd - Last Filed: 04/25/22 21:51> Mode of arrival: ambulatory <UCHE Todd - Last Filed: 04/25/22 21:51> Limitations: no limitations <UCHE Todd Last Filed: 04/25/22 21:51> History of Present Illness HPI Narrative: This is a 36-year-old female history of headaches presenting the Emergency left-sided headache which she rates 10/10 constant since this morning. Patient tells me that she is having sensitivity to light, sound, and earlier today was having nausea, vomiting. She tells me this feels like a typical headache however not going away. She reports that the only thing that helps with her headache is Dilaudid and Zofran. She tells me that she typically does not have an aura however today had an aura with black spots in her vision which have resolved. Patient denies chest pain, shortness of breath, weakness, dizziness, nausea, vomiting, changes in gait, changes in speech, neck pain, recent URI, fevers, chills. No head trauma, not on blood thinners. <UCHE Todd Last Filed: 04/25/22 21:51> Related Data Home Medications: Home Medications Medication Instructions Recorded Confirmed lamotrigine 200 mg tablet 200 mg PO DAILY 01/17/20 01/17/20 levothyroxine 88 mcg tablet See Rx Instructions PO DAILY 01/25/20 <Belen Zamora NP - Last Filed: 04/25/22 17:35> Allergies/Adverse Reactions: Allergies Allergy/AdvReac Type Severity Reaction Status Date / Time ibuprofen [From MOTRIN] Allergy Unknown HIVES Verified 02/15/22 14:59 tramadol [TRAMADOL] Allergy Unknown HIVES Verified 02/15/22 14:59 diphenhydramine AdvReac Unknown BODY PAIN Verified 02/15/22 14:59 [From BENADRYL] morphine [MORPHINE] AdvReac Unknown BACK Verified 02/15/22 14:59 MUSCLE SPASMS From TORADOL Allergy Unknown HIVES Uncoded 02/15/22 14:59 <Belen Zamora NP - Last Filed: 04/25/22 17:35> Review of Systems Review of Systems: Constitutional : No Weight loss, No Fever, No Chills, No Fatigue, No Malaise ENT/Mouth : No sore throat, No Rhinorrhea Eyes: No Eye Pain, No Swelling, No Redness Cardiovascular : No Chest Pain, No SOB, No Dyspnea on Exertion, No Orthopnea, No Edema, No Palpitations Respiratory : No Cough, No Sputum, No Wheezing Gastrointestinal : No Nausea, No Vomiting, No Diarrhea, No Constipation, No abdominal Pain, No Hematochezia, No Melena Genitourinary : No Dysuria, No Urinary Frequency, No Hematuria, Musculoskeletal : No joint pain, No Myalgias, No Joint Swelling Skin : No Skin Lesions, No rash Neuro : No Weakness, No Numbness, No Dizziness, + Headache Psych : No Anxiety/Panic, No Depression All other systems reviewed and are negative <UCHE Todd - Last Filed: 04/25/22 21:51> Yes all other systems are reviewed and are negative <UCHE Todd - Last Filed: 04/25/22 21:51> [facility] Past Medical History Medical History: Medical History Bipolar disorder Endometriosis Hypothyroidism Intracranial bleed Migraine Obesity (BMI 30-39.9) Posterior cranial fossa malformation, hemangioma, arterial anomaly, cardiac defect, eye abnormality, and sternal cleft or supraumbilical raphe syndrome <Belen Zamora NP - Last Filed: 04/25/22 17:35> Surgical History: Surgical History H/O lithotripsy H/O: History of skin graft S/P laparoscopic appendectomy S/P laparoscopic cholecystectomy S/P left knee arthroscopy <Belen Zamora NP - Last Filed: 04/25/22 17:35> Family History Family History: Family History Father No problems noted. Mother No problems noted. Paternal Grandfather History of bone cancer Sister No problems noted. Sister No problems noted. Daughter No problems noted. Daughter No problems noted. <Belen Zamora NP - Last Filed: 04/25/22 17:35> Social History Social History: Social History Household Members: Spouse Housing: House Alcohol intake: former Second Hand Smoke Exposure: No Advance Directives: No Advance Directives Information Provided: Yes service: Yes (DISABLED. [employer] X 6 YEARS) Current occupational status: unemployed <Belen Zamora NP - Last Filed: 04/25/22 17:35> Physical Exam Vital Signs: Vital Signs: Last Vital Signs Temp 98.7 F 04/25/22 19:10 Pulse 84 04/25/22 21:32 Resp 16 04/25/22 21:32 BP 132/77 04/25/22 21:32 Pulse Ox 99 04/25/22 21:32 O2 Del Method 04/25/22 21:32 BMI result Body Mass Index 28.8 <Belen Zamora NP - Last Filed: 04/25/22 17:35> Vital Signs: Last Vital Signs Temp 98.7 F 04/25/22 19:10 Pulse 84 04/25/22 21:32 Resp 16 04/25/22 21:32 BP 132/77 04/25/22 21:32 Pulse Ox 99 04/25/22 21:32 O2 Del Method 04/25/22 21:32 BMI result Body Mass Index 28.8 Vital signs stable <UCHE Todd - Last Filed: 04/25/22 21:51> Appearance: Alert.? Oriented X3.? No acute distress.? Head: Normocephalic, atraumatic, no step-offs or deformities Eyes: Pupils equal, round and reactive to light.? CVS: Normal heart rate and rhythm.? Pulses normal.? Respiratory: No respiratory distress.? Breath sounds normal.? Abdomen: Soft and nontender.? Skin: Skin warm and dry.? Normal skin color.? Normal skin turgor.? Extremities: No lower extremity edema.? No calf ttp. 5/5 strength to bilateral upper and lower extremities Back: No midline tenderness, no C-spine tenderness, full range of motion, no CVA tenderness bilaterally Neuro: Oriented X 3.? No motor deficit.? No sensory deficit. CN 2-12 intact . Ambulating steady gait normal sensation. Normal [id number], [id number]. NIH stroke scale 0. <UCHE Todd - Last Filed: 04/25/22 21:51> Course Course Course Narrative: This is a rapid medical exam. Deferred additional HPI, ROS, PE to primary provider. 36 yo female with history of migraines who sees neurologist who reports BROWNE x 1 week with dizziness, visual disturbances despite taking motrin/tylenol. VSS <Belen Zamora NP - Last Filed: 04/25/22 17:35> Reevaluation(s) Reevaluation #1: CBC with slightly elevated white blood cell count however this appears to be around patient's baseline, I do not suspect this is infectious in origin. Chemistry with no acute electrolyte abnormalities requiring intervention. Head CT with no acute findings. Patient now feeling much better. Walking around the room appears comfortable, no acute distress. Neuro remains nonfocal, NIH stroke scale was 0. <UCHE Todd - Last Filed: 04/25/22 21:51> Medications Administered Discontinued Medications Generic Name Dose Route Start Last Admin Trade Name Mindi PRN Reason Stop Dose Admin Hydromorphone HCl 1 mg 04/25/22 18:55 04/25/22 19:04 Hydromorphone Hcl 1 Mg/Ml Syringe IVPUSH 04/25/22 18:56 1 mg ONCE ONE Administration Protocol Hydromorphone HCl 0.5 mg 04/25/22 20:29 04/25/22 20:46 Hydromorphone Hcl 0.5 Mg/0.5 Ml Syringe IVPUSH 04/25/22 20:30 0.5 mg ONCE ONE Administration Protocol Lorazepam 1 mg 04/25/22 20:29 04/25/22 20:46 Lorazepam 2 Mg/Ml Vial IVPUSH 04/25/22 20:30 1 mg STAT STA Administration Ondansetron HCl 4 mg 04/25/22 18:55 04/25/22 19:03 Ondansetron Hcl 4 Mg/2 Ml Vial IVPUSH 04/25/22 18:56 4 mg ONCE ONE Administration <Belen Zamora NP - Last Filed: 04/25/22 17:35> Medications Administered Discontinued Medications Generic Name Dose Route Start Last Admin Trade Name Mindi PRN Reason Stop Dose Admin Hydromorphone HCl 1 mg 04/25/22 18:55 04/25/22 19:04 Hydromorphone Hcl 1 Mg/Ml Syringe IVPUSH 04/25/22 18:56 1 mg ONCE ONE Administration Protocol Hydromorphone HCl 0.5 mg 04/25/22 20:29 04/25/22 20:46 Hydromorphone Hcl 0.5 Mg/0.5 Ml Syringe IVPUSH 04/25/22 20:30 0.5 mg ONCE ONE Administration Protocol Lorazepam 1 mg 04/25/22 20:29 04/25/22 20:46 Lorazepam 2 Mg/Ml Vial IVPUSH 04/25/22 20:30 1 mg STAT STA Administration Ondansetron HCl 4 mg 04/25/22 18:55 04/25/22 19:03 Ondansetron Hcl 4 Mg/2 Ml Vial IVPUSH 04/25/22 18:56 4 mg ONCE ONE Administration <UCHE Todd - Last Filed: 04/25/22 21:51> Medical Decision Making Medical Decision Making [facility] Narrative: [id number] 36-year-old female presents with severe headache the left side of her head, patient tells me she gets these often, tells me the only thing that helps is Dilaudid and Zofran. Physical exam benign. Likely typical migraine, unlikely intracranial hemorrhage, stroke, posterior stroke, meningitis, encephalitis. Plan basic labs, imaging <UCHE Todd Last Filed: 04/25/22 21:51> Differential Diagnosis Differential Diagnoses: The differential diagnosis associated with the presentation includes <UCHE Todd Last Filed: 04/25/22 21:51> Likely typical migraine, unlikely intracranial hemorrhage, stroke, posterior stroke, meningitis, encephalitis. <UCHE Todd Last Filed: 04/25/22 21:51> Admission/Observation Consideration of admission/observation: Escalation of care including admission/observation considered <UCHE Todd - Last Filed: 04/25/22 21:51> Unlikely <UCHE Todd - Last Filed: 04/25/22 21:51> Lab Data MDM Lab Attestation statement: I reviewed the patient's lab results. <UCHE Todd - Last Filed: 04/25/22 21:51> Result Diagrams: 04/25/22 18:46 04/25/22 19:26 <Belen Zamora NP - Last Filed: 04/25/22 17:35> Labs: Lab Results 04/25/22 04/25/22 Range/Units 18:46 19:26 WBC 12.6 H (4.8-10.8) X10*3/uL RBC 5.18 (4.20-5.50) X10*6/uL Hgb 15.9 (12.0-16.0) g/dl Hct 46.2 (37.0-47.0) % MCV 89.2 (80.0-98.0) fL MCH 30.7 (27.0-33.0) pg MCHC 34.4 (31.0-35.0) g/dl RDW 12.7 (11.0-16.0) % Plt Count 326 (160-400) X10*3/uL MPV 11.2 (9.4-12.3) fL Immature Gran % (Auto) 0.3 (0.0-0.4) % Neut % (Auto) 85.0 H (45-73) % Lymph % (Auto) 9.8 L (20-40) % [place] % (Auto) 3.7 (2-11) % Eos % (Auto) 0.6 (0-4) % Baso % (Auto) 0.6 (0-2) % Lymph # (Auto) 1.2 (1.2-4.9) X10*3/uL [place] # (Auto) 0.5 (0.1-1.2) X10*3/uL Eos # (Auto) 0.1 (0.0-0.4) X10*3/uL Baso # (Auto) 0.1 (0.0-0.2) X10*3/uL Abs Immat Gran (auto) 0.04 H (0.00-0.03) X10*3/uL Absolute Neuts (auto) 10.5 H (2.0-8.3) x10*3/uL Absolute Nucleated RBC 0.000 (0.0-0.012) X10*3/uL Nucleated RBC % (auto) 0.0 (0.0-0.2) /100WBC Sodium 140 (135-145) mmol/L Potassium 4.2 (3.3-5.1) mmol/L Chloride 109 H (96-108) mmol/L Carbon Dioxide 23 (22-29) mmol/L Anion Gap 12 (12-20) BUN 13 (9-16) mg/dL Creatinine 0.81 (0.5-1.4) mg/dL Estim Creat Clear Calc 74.4 Estimated GFR > 60 Random Glucose 96 (60-115) mg/dL Calcium 9.4 (8.4-10.2) mg/dL Total Bilirubin 0.5 (0.0-1.0) mg/dL AST 31 (5-31) U/L ALT 67 H (0-31) U/L Alkaline Phosphatase 109 (39-117) U/L Total Protein 7.2 (6.5-8.0) g/dL Albumin 4.1 (3.5-5.0) g/dL <Belen Zamora, TEACHER SELECTION SPECIALIST - Last Filed: 04/25/22 17:35> Lab Results 04/25/22 04/25/22 Range/Units 18:46 19:26 WBC 12.6 H (4.8-10.8) X10*3/uL RBC 5.18 (4.20-5.50) X10*6/uL Hgb 15.9 (12.0-16.0) g/dl Hct 46.2 (37.0-47.0) % MCV 89.2 (80.0-98.0) fL MCH 30.7 (27.0-33.0) pg MCHC 34.4 (31.0-35.0) g/dl RDW 12.7 (11.0-16.0) % Plt Count 326 (160-400) X10*3/uL MPV 11.2 (9.4-12.3) fL Immature Gran % (Auto) 0.3 (0.0-0.4) % Neut % (Auto) 85.0 H (45-73) % Lymph % (Auto) 9.8 L (20-40) % [place] % (Auto) 3.7 (2-11) % Eos % (Auto) 0.6 (0-4) % Baso % (Auto) 0.6 (0-2) % Lymph # (Auto) 1.2 (1.2-4.9) X10*3/uL [place] # (Auto) 0.5 (0.1-1.2) X10*3/uL Eos # (Auto) 0.1 (0.0-0.4) X10*3/uL Baso # (Auto) 0.1 (0.0-0.2) X10*3/uL Abs Immat Gran (auto) 0.04 H (0.00-0.03) X10*3/uL Absolute Neuts (auto) 10.5 H (2.0-8.3) x10*3/uL Absolute Nucleated RBC 0.000 (0.0-0.012) X10*3/uL Nucleated RBC % (auto) 0.0 (0.0-0.2) /100WBC Sodium 140 (135-145) mmol/L Potassium 4.2 (3.3-5.1) mmol/L Chloride 109 H (96-108) mmol/L Carbon Dioxide 23 (22-29) mmol/L Anion Gap 12 (12-20) BUN 13 (9-16) mg/dL Creatinine 0.81 (0.5-1.4) mg/dL Estim Creat Clear Calc 74.4 Estimated GFR > 60 Random Glucose 96 (60-115) mg/dL Calcium 9.4 (8.4-10.2) mg/dL Total Bilirubin 0.5 (0.0-1.0) mg/dL AST 31 (5-31) U/L ALT 67 H (0-31) U/L Alkaline Phosphatase 109 (39-117) U/L Total Protein 7.2 (6.5-8.0) g/dL Albumin 4.1 (3.5-5.0) g/dL <UCHE Todd - Last Filed: 04/25/22 21:51> Independent Interpretation I performed an independent interpretation of an: CT Scan (Unremarkable) <UCHE Todd - Last Filed: 04/25/22 21:51> Radiology Impression Discussion of test interpretation with radiology: I have reviewed the radiologist's reading. <UCHE Todd - Last Filed: 04/25/22 21:51> Core Measures AMI core measures followed: Yes <UCHE Todd - Last Filed: 04/25/22 21:51> Measure exclusions: not indicated <UCHE Todd - Last Filed: 04/25/22 21:51> Critical Care Time Critical Care Time Critical Care Time: No <UCHE Todd - Last Filed: 04/25/22 21:51> Discharge Plan Discharge Clinical Impression: Headache <Belen Zamora NP - Last Filed: 04/25/22 17:35> Patient Disposition: Home, Self-Care <Belen Zamora NP - Last Filed: 04/25/22 17:35> Instructions: Acute Headache (ED) <Belen Zamora NP - Last Filed: 04/25/22 17:35> Additional Instructions: Take your medications as prescribed. If you were prescribed antibiotics today, it is important that you take your medication to their entirety, do not skip any doses, do not finish them early. Follow-up with your primary care provider this week. Return to the emergency department with new or worsening symptoms. Such as fevers, chills, chest pain, shortness of breath, nausea, vomiting, dizziness, headache, vision changes, lethargy In case of emergency call 911 <CHANTAL King Last Filed: 04/25/22 17:35> Prescriptions: No Action levothyroxine 88 mcg tablet See Rx Instructions PO DAILY Rx Instructions: PO daily; lamotrigine 200 mg Tablet 200 mg PO DAILY <CHANTAL King Last Filed: 04/25/22 17:35> Referrals: Chikis Appiah MD [Primary Care Provider] - 2 days <Belen Zamora NP - Last Filed: 04/25/22 17:35> Stand Alone Forms: Work/School Release <Belen Zamora NP - Last Filed: 04/25/22 17:35>
[2022-04-25 17:39] VITALS: BP 153/92; PULSE 82; RESP 16; O2SAT 95
--- NOTE | 2022-04-25 17:40 | PC.NURSE ---
patient ambulated into ED w/ steady gait. awake and alert, skin pwd, resp even and non labored. speaking in full, clear sentences. reports migraine for 1 week- has taken tylenol, ibuprofen, and imitrex w/ no relief. states that her neurologist recommended her to go to ER.
[2022-04-25 18:49] LABS: MANUAL DIFF FLAG NO
[2022-04-25 18:51] LABS: Basophils Percent Auto 0.6 % (0-2); Mean Corpuscular Volume 89.2 fL (80.0-98.0); PLT CLUMP 1; Red Cell Distribution Width 12.7 % (11.0-16.0); SCAN SMEAR FLAG 1
[2022-04-25 18:53] LABS: Basophils Absolute Auto 0.1 X10*3/uL (0.0-0.2); Eosinophils Absolute Auto 0.1 X10*3/uL (0.0-0.4); Eosinophils Percent Auto 0.6 % (0-4); Hematocrit 46.2 % (37.0-47.0); Hemoglobin 15.9 g/dl (12.0-16.0); Imm Gran Abs Auto 0.04 X10*3/uL (0.00-0.03); Imm Gran Pct Auto 0.3 % (0.0-0.4); Lymphocytes Absolute Auto 1.2 X10*3/uL (1.2-4.9); Lymphocytes Percent Auto 9.8 % (20-40); Mean Corpuscular HGB Conc 34.4 g/dl (31.0-35.0); Mean Corpuscular Hemoglobin 30.7 pg (27.0-33.0); Mean Platelet Volume 11.2 fL (9.4-12.3); Monocytes Absolute Auto 0.5 X10*3/uL (0.1-1.2); Monocytes Percent Auto 3.7 % (2-11); Neutrophils Absolute Auto 10.5 x10*3/uL (2.0-8.3); Red Blood Count 5.18 X10*6/uL (4.20-5.50)
[2022-04-25] MEDS: ondansetron HCL 4 MG/2 ML VIAL IVPUSH (19:03)
[2022-04-25] MEDS: HYDROmorphone HCl 1 MG/ML SYRINGE IVPUSH (19:04)
[2022-04-25 19:10] VITALS: BP 131/91; PULSE 85; RESP 20; TEMP 37.1; O2SAT 97
[2022-04-25 19:10] LABS: Platelet Count 326 X10*3/uL (160-400); White Blood Count 12.6 X10*3/uL (4.8-10.8)
[2022-04-25 19:50] LABS: Alanine Aminotransferase 67 U/L (0-31); Albumin Level 4.1 g/dL (3.5-5.0); Alkaline Phosphatase 109 U/L (39-117); Anion Gap 12 (12-20); Aspartate Amino Transferase 31 U/L (5-31); Bilirubin Total 0.5 mg/dL (0.0-1.0); Blood Urea Nitrogen 13 mg/dL (9-16); Calcium 9.4 mg/dL (8.4-10.2); Carbon Dioxide 23 mmol/L (22-29); Chloride 109 mmol/L (96-108); Creatinine Clr Calc Pharmacy 74.4; Estimated Glomerular Filt Rate > 60; Glucose Random 96 mg/dL (60-115); Potassium 4.2 mmol/L (3.3-5.1); Sodium 140 mmol/L (135-145); Total Protein 7.2 g/dL (6.5-8.0)
[2022-04-25] MEDS: LORazepam 2 MG/ML VIAL 1 MG IVPUSH (20:46)
[2022-04-25] MEDS: HYDROmorphone HCl 0.5 MG/0.5 ML SYRINGE IVPUSH (20:46)
[2022-04-25 21:32] VITALS: BP 132/77; PULSE 84; RESP 16; O2SAT 99
== END 2022-04-25 22:06 | disposition home or self-care (01) ==
PROVIDERS: Physician Assistant; Emergency Provider Emergency Medicine; PCP Family Medicine
DX: R51.9 Headache, unspecified (principal); Z79.899 Other long term (current) drug therapy
CPT/HCPCS: 36415; 70450; 80053; 85025; 96374; 96375; 96376; 99284; J1170; J2060; J2405

== ENCOUNTER → 2022-10-24 13:42 | Outpatient (BNV) | payer OTHER, SELFPAY | PROVIDERS: PCP Family Medicine; Referring Provider Family Medicine; Visit Provider Internal Medicine Medical Oncology | DX: D75.1 Secondary polycythemia (principal) | CPT/HCPCS: 99204 ==

== ENCOUNTER 2022-10-24 15:17 | Emergency (ER) | payer OTHER, SELFPAY ==
--- NOTE | ~2022-10-24 | US_ITS ---
EXAMINATION:US pelvic and transvaginal CLINICAL INFORMATION: Reason for Exam suprapubic pain, hx endometriosis COMPARISON: No priors available. LMP: 3 years ago FINDINGS: UTERUS: The uterus is anteverted. Size: 74 x 35 x 54 cm. Uterine mass: There is no uterine mass. Cervix: Grossly unremarkable. Endometrium: No ultrasound evidence of endometrial lesion. endometrial thickness measures 0.6 cm, there is IUD in place. ADNEXA: Normal Right ovary: Normal in size. Left ovary: Mildly complex cystic structure in the left ovary 2.4 x 1.4 x 1.6 cm with some internal echo probably debris and echogenic thick wall, this could be reevaluated with follow-up ultrasound in 6 weeks. Doppler exam: Normal Doppler flow identified in both ovaries. FREE FLUID: Trace amount of free fluid. OTHER FINDINGS: None US/US pelvic and transvaginal IMPRESSION: * Mildly complex cystic structure in the left ovary 2.4 cm. Few echogenic matrix and slightly thickened echogenic rim, recommend correlation with follow-up ultrasound in 6 weeks. * IUD in place.
--- NOTE | ~2022-10-24 | CT_ITS ---
EXAMINATION: CT ABDOMEN AND PELVIS WITHOUT CONTRAST CLINICAL INFORMATION: Abdominal pain COMPARISON: 01/17/2020 TECHNIQUE: Multidetector volumetric imaging was performed from the superior aspect of the liver through the pubic symphysis. Sagittal and coronal reformatted images were obtained on the technologist's workstation. This CT examination was performed using dose optimization techniques as appropriate, variously including the following: *Automated exposure control *Adjustment of mA and/or kV according to patient size (this includes techniques or standardized protocols for targeted exams where dose is matched to indication/reason for exam; i.e. extremities or head) *Use of iterative reconstruction technique DLP: 533 mGy-cm FINDINGS: LUNG BASES: The visualized lung bases are unremarkable. LIVER, GALLBLADDER, AND BILIARY TREE: The liver is normal in size, shape, and attenuation. No focal hepatic lesion or biliary ductal dilatation is present. Gallbladder is surgically absent. PANCREAS: Unremarkable. SPLEEN: Unremarkable. ADRENAL GLANDS: Unremarkable. KIDNEYS AND URETERS: Right kidney revealed cortical irregularity and stones in the lower pole without hydronephrosis. Calculi measure 0.3 cm each. Right ureter is not dilated Left kidney revealed irregular cortex without hydroureteronephrosis or nephrolithiasis BLADDER: Unremarkable. GASTROINTESTINAL TRACT: Appendix is surgically absent. There is abnormal loop of small bowel in the right lower quadrant with irregular wall most likely inflammatory bowel disease. ABDOMINAL WALL: No significant hernia is appreciated. LYMPH NODES: Normal. VASCULAR: Unremarkable. PELVIC VISCERA: There is IUD in the pelvis. The left adnexa revealed cyst. OSSEOUS STRUCTURES: Unremarkable. CT/CT abdomen pelvis wo IV con IMPRESSION: 1. Abnormal loop of small bowel in the right lower quadrant most likely inflammatory bowel disease/Crohn's. 2. Right nephrolithiasis without hydronephrosis. 3. Left adnexal cyst. Fleischner guidelines were followed.
[2022-10-24 16:46] VITALS: BP 154/91; PULSE 87; RESP 18; TEMP 36.4; O2SAT 99; BMI 32.4
--- NOTE | 2022-10-24 16:49 | ED_ITS ---
HPI - General Adult General Chief complaint: Abdominal Pain Stated complaint: lower abd pain Time Seen by Provider: 10/24/22 21:08 Source: patient Mode of arrival: ambulatory Limitations: no limitations History of Present Illness HPI narrative: 37-year-old female came in for evaluation of suprapubic pain for the past 2 days pain has been constant to the suprapubic and more to the left lower abdomen described as dull aching pain severe 10/10 associated with nausea and vomiting, patient also with decreased p.o. intake, no fever, no chills, normal bowel movement yesterday with no diarrhea. No dysuria, no frequency urination, no hematuria. Patient is not sexually active, no vaginal bleeding or vaginal discharge. Past abdominal surgery is significant for appendectomy. Related Data Home Medications Medication Instructions Recorded Confirmed lamotrigine 200 mg tablet 200 mg PO DAILY 01/17/20 10/24/22 levothyroxine 88 mcg tablet See Rx Instructions PO DAILY 01/25/20 10/24/22 fluoxetine 10 mg capsule 10 mg PO DAILY 10/24/22 10/24/22 Allergies Allergy/AdvReac Type Severity Reaction Status Date / Time ibuprofen [From MOTRIN] Allergy Unknown HIVES Verified 10/24/22 13:51 tramadol [TRAMADOL] Allergy Unknown HIVES Verified 10/24/22 13:51 diphenhydramine AdvReac Unknown BODY PAIN Verified 10/24/22 13:51 [From BENADRYL] morphine [MORPHINE] AdvReac Unknown BACK Verified 10/24/22 13:51 MUSCLE SPASMS From TORADOL Allergy Unknown HIVES Uncoded 10/24/22 13:51 Review of Systems Review of Systems: All other systems are reviewed and are negative Constitutional: Reports as per HPI and Reports no additional constitutional complaints Eyes: Reports as per HPI and Reports no additional eye complaints Reports system reviewed and no additional complaints, except as documented Cardiovascular: Reports as per HPI and Reports no additional cardiovascular complaints Respiratory: Reports as per HPI and Reports no additional respiratory complaints Gastrointestinal: Reports as per HPI and Reports no additional gastrointestinal complaints Genitourinary: Reports no additional female genitourinary complaints Musculoskeletal: Reports no additional musculoskeletal complaints Skin/Breast: Reports system reviewed and no additional complaints, except as docu Psychiatric: Reports no additional psychiatric complaints Endocrine: Reports no additional endocrine complaints Hematologic/Lymphatic: Reports no additional hematologic/lymphatic complaints Allergic/Immunologic: Reports no additional allergic/immunologic complaints Reports system reviewed and no additional complaints, except as documented and Reports Abnormal speech present FORMERLY [facility] Past Medical History Medical History Bipolar disorder Endometriosis Hypothyroidism Intracranial bleed Migraine Obesity (BMI 30-39.9) Posterior cranial fossa malformation, hemangioma, arterial anomaly, cardiac defect, eye abnormality, and sternal cleft or supraumbilical raphe syndrome Surgical History H/O lithotripsy H/O: History of skin graft S/P laparoscopic appendectomy S/P laparoscopic cholecystectomy S/P left knee arthroscopy Family History Family History Father No problems noted. Mother No problems noted. Paternal Grandfather History of bone cancer Sister No problems noted. Sister No problems noted. Daughter No problems noted. Daughter No problems noted. Social History Social History Household Members: Spouse Housing: House Alcohol intake: former Second Hand Smoke Exposure: No Advance Directives: No Advance Directives Information Provided: No service: Yes Current occupational status: unemployed and disabled Physical Exam ED Vital Signs: Vital Signs - 24 hr 10/24/22 16:46 10/24/22 21:00 10/24/22 22:37 Temperature 97.5 F 98.8 F Pulse Rate 87 74 Respiratory Rate 18 18 18 Blood Pressure 154/91 H 125/93 H Pulse Oximetry 99 99 Oxygen Delivery Method Room Air Room Air BMI result Body Mass Index 32.4 Vital signs have been reviewed as appeared to be correct. Blood pressure normal. Heart rate normal. Respiration rate normal. Temperature normal. Oxygen saturation normal. Appearance: Alert. Oriented X3. No acute distress. Head: Normal external exam. Normocephalic. Atraumatic. No Ortiz signs noted. No raccoon eyes noted Eyes: PERRLA. EOMI. Conjunctiva and sclera normal. Eyelids normal. ENT: TM's Normal. Pharynx normal. Uvula midline. Moist mucous membranes. No trismus noted. No drooling noted. No muffled voice noted. Neck: Normal inspection. Neck supple. FROM. No adenopathy. Thyroid Normal. No meningeal signs. No neck mass noted. CVS: Normal heart rate and rhythm. Heart sound normal. No murmurs noted. Pulses normal throughout. Respiratory: No respiratory distress. Painless inspiration. Breath sounds normal. No wheezes/rales/rhonchi noted. Chest nontender. No accessory muscle usage noted or decreased air movement noted. Abdomen: Soft, tenderness to the suprapubic area with no rebound tenderness or guarding.. Bowel sounds normal in all 4 quadrants. No distention noted. No organomegaly noted. No visible injury noted. Back: No CVA tenderness. Full range of motion noted. Skin: Skin warm and dry. Normal skin color. Normal skin turgor. No r ashes/lesions/lacerations noted. Extremities: No lower extremity edema. Extremities exhibit normal range of motion. Extremities nontender. Neuro: Oriented X 3. Cranial nerve exam: II-XII are grossly intact No motor deficit. No sensory deficit. Reflexes normal. Course Course Course Narrative: This is an RME: Additional HPI, ROS, PE not included below will be deferred to primary provider. This is a 37-year-old female, with a history of endometriosis and kidney stones emergency department with complaints of suprapubic pain x 1 week. +nausea, vomiting. appears uncomfortable. VSS. Plan: Labs, UA, CT abd, pelvic US. Reevaluation(s) Reevaluation #1: Patient with history of ovarian cyst, endometriosis that can be the reason of patient's chronic pelvic pain. Patient's symptoms under better control will discharge to follow-up with PCP/GI/OBGYN. Time: 23:56 Medications Administered Discontinued Medications Generic Name Dose Route Start Last Admin Trade Name Kirtq PRN Reason Stop Dose Admin Diazepam 2.5 mg 10/24/22 23:13 10/24/22 23:28 Diazepam 10 Mg/2 Ml Cartridge IVPUSH 10/24/22 23:14 2.5 mg STAT STA Administration Methylprednisolone Sodium Succinate 125 mg 10/24/22 21:12 10/24/22 22:33 Methylprednisolone Sod Succ 125 Mg/2 Ml Vial IVPUSH 10/24/22 21:13 125 mg ONCE ONE Administration Morphine Sulfate 2 mg 10/24/22 21:12 10/24/22 22:37 Morphine Sulfate 2 Mg/Ml Cartridge IVPUSH 10/24/22 21:13 2 mg ONCE ONE Administration Protocol Ondansetron HCl 4 mg 10/24/22 21:12 10/24/22 22:30 Ondansetron Hcl 4 Mg/2 Ml Vial IVPUSH 10/24/22 21:13 4 mg ONCE ONE Administration Medical Decision Making Differential Diagnosis Differential Diagnoses: The differential diagnosis associated with the presentation includes (Endometriosis, chronic pelvic pain, ovarian cyst, ovarian torsion, colitis, enteritis, electrolyte abnormality, severe anemia.) Admission/Observation Consideration of admission/observation: Escalation of care including admission/observation considered Lab Data MDM Lab Attestation statement: I reviewed the patient's lab results. 10/24/22 17:13 10/24/22 17:13 Labs: Lab Results 10/24/22 10/24/22 10/24/22 Range/Units 17:13 17:13 17:13 WBC 13.3 H (4.8-10.8) X10*3/uL RBC 5.29 (4.20-5.50) X10*6/uL Hgb 16.0 (12.0-16.0) g/dl Hct 47.8 H (37.0-47.0) % MCV 90.4 (80.0-98.0) fL MCH 30.2 (27.0-33.0) pg MCHC 33.5 (31.0-35.0) g/dl RDW 13.1 (11.0-16.0) % Plt Count 343 (160-400) X10*3/uL MPV 10.9 (9.4-12.3) fL Immature Gran % (Auto) 0.5 H (0.0-0.4) % Neut % (Auto) 72.0 (45-73) % Lymph % (Auto) 16.6 L (20-40) % Rooks % (Auto) 7.9 (2-11) % Eos % (Auto) 2.4 (0-4) % Baso % (Auto) 0.6 (0-2) % Lymph # (Auto) 2.2 (1.2-4.9) X10*3/uL Rooks # (Auto) 1.1 (0.1-1.2) X10*3/uL Eos # (Auto) 0.3 (0.0-0.4) X10*3/uL Baso # (Auto) 0.1 (0.0-0.2) X10*3/uL Abs Immat Gran (auto) 0.06 H (0.00-0.03) X10*3/uL Absolute Neuts (auto) 9.6 H (2.0-8.3) x10*3/uL Absolute Nucleated RBC 0.000 (0.0-0.012) X10*3/uL Nucleated RBC % (auto) 0.0 (0.0-0.2) /100WBC Sodium 138 (135-145) mmol/L Potassium 4.0 (3.3-5.1) mmol/L Chloride 106 (96-108) mmol/L Carbon Dioxide 21 L (22-29) mmol/L Anion Gap 15 (12-20) BUN 14 (9-16) mg/dL Creatinine 0.78 (0.5-1.4) mg/dL Estim Creat Clear Calc 81.3 Estimated GFR > 60 Random Glucose 81 (60-115) mg/dL Calcium 9.7 (8.4-10.2) mg/dL Magnesium 2.1 (1.6-2.6) mg/dL Total Bilirubin 0.3 (0.0-1.0) mg/dL Direct Bilirubin 0.1 (0.0-0.5) mg/dL AST 17 (5-31) U/L ALT 31 (0-31) U/L Alkaline Phosphatase 74 (39-117) U/L Total Protein 7.8 (6.5-8.0) g/dL Albumin 4.2 (3.5-5.0) g/dL Beta HCG, Quant < 2 mIU/mL Urine Color Urine Appearance Urine pH (5.0-9.0) Ur Specific [place] (1.005-1.025) Urine Protein (Neg-Trace) mg/dL Urine Glucose (UA) (Negative) mg/dL Urine Ketones (Negative) mg/dL Urine Blood (Negative) Urine Nitrite (Negative) Ur Leukocyte Esterase (Negative) 10/24/22 Range/Units 17:13 WBC (4.8-10.8) X10*3/uL RBC (4.20-5.50) X10*6/uL Hgb (12.0-16.0) g/dl Hct (37.0-47.0) % MCV (80.0-98.0) fL MCH (27.0-33.0) pg MCHC (31.0-35.0) g/dl RDW (11.0-16.0) % Plt Count (160-400) X10*3/uL MPV (9.4-12.3) fL Immature Gran % (Auto) (0.0-0.4) % Neut % (Auto) (45-73) % Lymph % (Auto) (20-40) % Rooks % (Auto) (2-11) % Eos % (Auto) (0-4) % Baso % (Auto) (0-2) % Lymph # (Auto) (1.2-4.9) X10*3/uL Rooks # (Auto) (0.1-1.2) X10*3/uL Eos # (Auto) (0.0-0.4) X10*3/uL Baso # (Auto) (0.0-0.2) X10*3/uL Abs Immat Gran (auto) (0.00-0.03) X10*3/uL Absolute Neuts (auto) (2.0-8.3) x10*3/uL Absolute Nucleated RBC (0.0-0.012) X10*3/uL Nucleated RBC % (auto) (0.0-0.2) /100WBC Sodium (135-145) mmol/L Potassium (3.3-5.1) mmol/L Chloride (96-108) mmol/L Carbon Dioxide (22-29) mmol/L Anion Gap (12-20) BUN (9-16) mg/dL Creatinine (0.5-1.4) mg/dL Estim Creat Clear Calc Estimated GFR Random Glucose (60-115) mg/dL Calcium (8.4-10.2) mg/dL Magnesium (1.6-2.6) mg/dL Total Bilirubin (0.0-1.0) mg/dL Direct Bilirubin (0.0-0.5) mg/dL AST (5-31) U/L ALT (0-31) U/L Alkaline Phosphatase (39-117) U/L Total Protein (6.5-8.0) g/dL Albumin (3.5-5.0) g/dL Beta HCG, Quant mIU/mL Urine Color Yellow Urine Appearance Clear Urine pH 6.0 (5.0-9.0) Ur Specific [place] 1.015 (1.005-1.025) Urine Protein Negative (Neg-Trace) mg/dL Urine Glucose (UA) Negative (Negative) mg/dL Urine Ketones Negative (Negative) mg/dL Urine Blood Negative (Negative) Urine Nitrite Negative (Negative) Ur Leukocyte Esterase Negative (Negative) Independent Interpretation I performed an independent interpretation of an: Ultrasound (Pelvic ultrasound: IUD, 2.4 cm complex cystic structure of the left ovary.) and CT Scan (Abdomen and pelvis: IBD, left adnexal cyst.) Radiology Impression Discussion of test interpretation with radiology: I have reviewed the radiologist's reading. Discharge Plan Discharge Clinical Impression: Endometriosis, Ovarian cyst Patient Disposition: Home, Self-Care Prescriptions: No Action levothyroxine 88 mcg tablet See Rx Instructions PO DAILY Rx Instructions: PO daily; lamotrigine 200 mg Tablet 200 mg PO DAILY fluoxetine 10 mg Capsule 10 mg PO DAILY Referrals: Mary Chu MD [Physician] - Chikis Appiah MD [Primary Care Provider] - Will Jordan MD [Physician] -
[2022-10-24 17:20] LABS: MANUAL DIFF FLAG NO
[2022-10-24 17:22] LABS: Basophils Absolute Auto 0.1 X10*3/uL (0.0-0.2); Basophils Percent Auto 0.6 % (0-2); Eosinophils Absolute Auto 0.3 X10*3/uL (0.0-0.4); Eosinophils Percent Auto 2.4 % (0-4); Hematocrit 47.8 % (37.0-47.0); Imm Gran Abs Auto 0.06 X10*3/uL (0.00-0.03); Imm Gran Pct Auto 0.5 % (0.0-0.4); Lymphocytes Absolute Auto 2.2 X10*3/uL (1.2-4.9); Lymphocytes Percent Auto 16.6 % (20-40); Mean Corpuscular HGB Conc 33.5 g/dl (31.0-35.0); Mean Corpuscular Hemoglobin 30.2 pg (27.0-33.0); Mean Corpuscular Volume 90.4 fL (80.0-98.0); Mean Platelet Volume 10.9 fL (9.4-12.3); Monocytes Absolute Auto 1.1 X10*3/uL (0.1-1.2); Monocytes Percent Auto 7.9 % (2-11); Neutrophils Absolute Auto 9.6 x10*3/uL (2.0-8.3); Platelet Count 343 X10*3/uL (160-400); Red Blood Count 5.29 X10*6/uL (4.20-5.50); Red Cell Distribution Width 13.1 % (11.0-16.0); White Blood Count 13.3 X10*3/uL (4.8-10.8)
[2022-10-24 17:24] LABS: Appearance Urine Clear; Color Urine Yellow; Glucose Urine UA Negative (Negative); Leukocyte Esterase Urine Negative (Negative); Nitrite Urine Negative (Negative); Specific Gravity - Urine 1.015 (1.005-1.025); Urine Blood Negative (Negative); Urine Ketones Negative (Negative); Urine Protein Negative (Neg-Trace)
[2022-10-24 17:48] LABS: Alanine Aminotransferase 31 U/L (0-31); Albumin Level 4.2 g/dL (3.5-5.0); Alkaline Phosphatase 74 U/L (39-117); Anion Gap 15 (12-20); Aspartate Amino Transferase 17 U/L (5-31); Bilirubin Direct 0.1 mg/dL (0.0-0.5); Bilirubin Total 0.3 mg/dL (0.0-1.0); Blood Urea Nitrogen 14 mg/dL (9-16); Calcium 9.7 mg/dL (8.4-10.2); Carbon Dioxide 21 mmol/L (22-29); Chloride 106 mmol/L (96-108); Creatinine Clr Calc Pharmacy 81.3; Estimated Glomerular Filt Rate > 60; Glucose Random 81 mg/dL (60-115); HCG Quantitative < 2 mIU/mL; Magnesium 2.1 mg/dL (1.6-2.6); Sodium 138 mmol/L (135-145); Total Protein 7.8 g/dL (6.5-8.0)
[2022-10-24 21:00] VITALS: BP 125/93; PULSE 74; RESP 18; TEMP 37.1; O2SAT 99
[2022-10-24] MEDS: ondansetron HCL 4 MG/2 ML VIAL IVPUSH (22:30)
[2022-10-24] MEDS: methylPREDNISolone Sod Succ 125 MG/2 ML VIAL IVPUSH (22:33)
[2022-10-24 22:37] VITALS: RESP 18
[2022-10-24] MEDS: Morphine Sulfate 2 MG/ML CARTRIDGE IVPUSH (22:37)
--- NOTE | 2022-10-24 23:00 | PC.NURSE ---
Late entry: Pt A&Ox4, reports 10/10 lower ABD pain/pelvic area x 1 week feeling constant with shooting pain. Pt reports N/V, denies Diarrhea. IV line placed. Pt states when she gets morphine my back muscles tense up , provider Jose Dominguez notified and order given as documented. 20 minutes later Pt reported back muscles tensing up from mid back to lower back, provider notified.
[2022-10-24] MEDS: diazePAM 10 MG/2 ML CARTRIDGE 2.5 MG IVPUSH (23:28)
== END 2022-10-25 00:30 | disposition home or self-care (01) ==
PROVIDERS: Physician Assistant Medical; Emergency Provider Emergency Medicine; PCP Family Medicine
DX: N80.102 Endometriosis of left ovary, unspecified depth (principal); N83.202 Unspecified ovarian cyst, left side; R10.2 Pelvic and perineal pain; Z79.899 Other long term (current) drug therapy
CPT/HCPCS: 36415; 74176; 76830; 76856; 80048; 80076; 81003; 83735; 84702; 85025; 96374; 96375; 99284; J2270; J2405; J2930; J3360

== ENCOUNTER 2023-06-26 10:44 | Emergency (ER) | payer OTHER, SELFPAY ==
--- NOTE | ~2023-06-26 | US_ITS ---
EXAMINATION: US PELVIS CLINICAL INFORMATION: Severe pelvic pain, history of endometriosis COMPARISON: Ultrasound pelvis 10/24/2022. TECHNIQUE: Ultrasound of the pelvis is performed using both transabdominal and transvaginal transducers along with Doppler. Transvaginal imaging is performed due to inadequate visualization transabdominally. FINDINGS: Uterus: The uterus is anteverted, anteflexed and measures 8.0 x 4.0 x 6.6 cm. The double wall endometrial thickness is 9.0 mm. The uterus is smooth in contour and has normal myometrial echogenicity. No visible fibroid. Adnexa: Both ovaries are visualized. There is normal color flow to the adnexa. There is no ovarian torsion. There is no pelvic ascites or fluid collection. Right ovary measures 4.3 x 1.6 x 1.9 cm. Volume 6.7. The ovary is is not optimally visualized. No focal lesion seen. Previously right ovary measured 4.9 x 1.3 x 1.6 cm and volume 5.3 mL. Left ovary measures 5.1 x 3.4 x 3.8 cm. There is a complex anechoic cyst with septation measuring 3.8 x 2.5 x 2.4 cm. There is normal vascular flow seen. Previously complex cyst measured 2.4 x 1.4 x 1.6 cm. Previously left ovary measured 4.5 x 3.6 x 2.6 cm and volume 22.0 mL. There is no free fluid in the cul-de-sac US/US pelvic and transvaginal IMPRESSION: Unremarkable uterus. Complex cyst left ovary measuring 3.8 cm. Previously it measured 2.4 cm in maximum dimension. Right ovary not optimally visualized however appears unremarkable. There is no free fluid in the cul-de-sac.
[2023-06-26 10:50] VITALS: BP 147/108; PULSE 111; RESP 18; TEMP 36.4; O2SAT 96; BMI 35.5
[2023-06-26 11:08] LABS: MANUAL DIFF FLAG NO
[2023-06-26 11:14] LABS: Basophils Absolute Auto 0.1 X10*3/uL (0.0-0.2); Basophils Percent Auto 0.5 % (0-2); Eosinophils Absolute Auto 0.2 X10*3/uL (0.0-0.4); Eosinophils Percent Auto 1.2 % (0-4); Hematocrit 45.9 % (37.0-47.0); Imm Gran Abs Auto 0.05 X10*3/uL (0.00-0.03); Imm Gran Pct Auto 0.3 % (0.0-0.4); Lymphocytes Absolute Auto 2.1 X10*3/uL (1.2-4.9); Lymphocytes Percent Auto 14.4 % (20-40); Mean Corpuscular HGB Conc 34.9 g/dl (31.0-35.0); Mean Corpuscular Hemoglobin 30.1 pg (27.0-33.0); Mean Corpuscular Volume 86.4 fL (80.0-98.0); Mean Platelet Volume 11.1 fL (9.4-12.3); Monocytes Absolute Auto 0.9 X10*3/uL (0.1-1.2); Monocytes Percent Auto 6.2 % (2-11); Neutrophils Absolute Auto 11.1 x10*3/uL (2.0-8.3); Neutrophils Percent Auto 77.4 % (45-73); Platelet Count 310 X10*3/uL (160-400); Red Blood Count 5.31 X10*6/uL (4.20-5.50); Red Cell Distribution Width 12.7 % (11.0-16.0); White Blood Count 14.3 X10*3/uL (4.8-10.8)
[2023-06-26 11:18] LABS: Appearance Urine Clear; Color Urine Yellow; Glucose Urine UA Negative (Negative); Leukocyte Esterase Urine Negative (Negative); Nitrite Urine Negative (Negative); Specific Gravity - Urine 1.025 (1.005-1.025); Urine Blood Negative (Negative); Urine Ketones Negative (Negative); Urine Protein Negative (Neg-Trace)
[2023-06-26 11:20] LABS: UPreg QC Valid YES; Urine Pregnancy NEGATIVE (NEGATIVE)
[2023-06-26 11:38] LABS: Anion Gap 14 (12-20); Blood Urea Nitrogen 10 mg/dL (9-16); Calcium 9.6 mg/dL (8.4-10.2); Carbon Dioxide 23 mmol/L (22-29); Chloride 108 mmol/L (96-108); Creatinine Clr Calc Pharmacy 76.8; Estimated Glomerular Filt Rate > 60; Glucose Random 101 mg/dL (60-115); Potassium 4.4 mmol/L (3.3-5.1); Sodium 141 mmol/L (135-145)
[2023-06-26 12:48] VITALS: BP 139/85; PULSE 81; RESP 18; TEMP 36.7; O2SAT 98
--- NOTE | 2023-06-26 12:49 | ED_ITS ---
HPI - Female Genitourinary General Chief complaint: Urogenital-Female Stated complaint: Endometriosis - pain Source: patient and RN notes reviewed Mode of arrival: ambulatory Limitations: no limitations History of Present Illness HPI Narrative: 38 year old male with pmhx significant for endometriosis, bipolar disorder, hypothyroidism, and migraine presents to the ED today for evaluation of severe pelvic pain x2 months following IUD placement. Since this time, she's had worsening pelvic pain that is similar to her previous endometriosis flares. She states that she has been trying to set up her [place] benefits back in [place] and has been unsuccessful. She adds that her pain became so severe, she decided to drive to [place] from [place] so that she could make an appointment with her previous doctor whom she still had benefits with. After hearing her symptoms, her PCP advised her to come to the ED for further evaluation. Admits to irregular menses that began prior to IUD placement. Denies chance of . Denies fever, chills, N/V, vaginal bleeding, abnormal vaginal discharge, flank pain, dysuria, hematuria. Related Data Home Medications Medication Instructions Recorded Confirmed lamotrigine 200 mg tablet 200 mg PO DAILY 01/17/20 10/24/22 levothyroxine 88 mcg tablet See Rx Instructions PO DAILY 01/25/20 10/24/22 fluoxetine 10 mg capsule 10 mg PO DAILY 10/24/22 10/24/22 Previous Rx's Medication Instructions Recorded oxycodone 5 mg tablet 5 mg PO Q8H PRN pain #10 tabs 10/25/22 oxycodone 5 mg tablet 5 mg PO Q8H PRN pain (scale score 06/26/23 7-10) 3 days #7 tabs Allergies Allergy/AdvReac Type Severity Reaction Status Date / Time ibuprofen [From MOTRIN] Allergy Unknown HIVES Verified 06/26/23 10:50 tramadol [TRAMADOL] Allergy Unknown HIVES Verified 06/26/23 10:50 diphenhydramine AdvReac Unknown BODY PAIN Verified 06/26/23 10:50 [From BENADRYL] morphine [MORPHINE] AdvReac Unknown BACK Verified 06/26/23 10:50 MUSCLE SPASMS From TORADOL Allergy Unknown HIVES Uncoded 10/24/22 13:51 Review of Systems 2 Review of Systems: Constitutional: No fever, chills, fatigue, night sweats, weight changes ENT/Mouth: No ear pain, hearing loss, nasal congestion, sinus pain, rhinorrhea, sore throat Eyes: No eye pain, swelling, redness, vision changes, discharge Cardio: No chest pain, palpitations, GARCIA, orthopnea, peripheral edema Pulm: No SOB, cough, sputum, wheezing, dyspnea, hemoptysis GI: No nausea, vomiting, hematemesis, diarrhea, constipation, hematochezia, melena, +abd pain : No irregular bleeding, dysuria, frequency, urgency, hesitancy, hematuria, flank pain, urinary flow changes, urinary incontinence or retention MSK: No back pain, neck pain, joint pain, myalgias Skin: No lesions, rashes Neuro: No weakness, numbness, paresthesias, LOC, dizziness, headache Psych: No anxiety/panic, depression, SI/HI, AH/VH All other systems reviewed and are negative. [facility] Past Medical History Attestation statement: The following information was validated with the patient. Source: old records reviewed and nursing notes reviewed Medical History Intracranial bleed Migraine Obesity (BMI 30-39.9) Bipolar disorder Posterior cranial fossa malformation, hemangioma, arterial anomaly, cardiac defect, eye abnormality, and sternal cleft or supraumbilical raphe syndrome Hypothyroidism Endometriosis Surgical History S/P laparoscopic appendectomy History of skin graft S/P left knee arthroscopy S/P laparoscopic cholecystectomy H/O: H/O lithotripsy Family History Family History Father No problems noted. Mother No problems noted. Paternal Grandfather History of bone cancer Sister No problems noted. Sister No problems noted. Daughter No problems noted. Daughter No problems noted. Social History Social History Household Members: Spouse Housing: House Alcohol intake: former Comment: sleeping Second Hand Smoke Exposure: No Advance Directives: No service: Yes Current occupational status: unemployed and disabled Physical Exam 2 Vital Signs: Vital Signs: Last Vital Signs Temp 97.4 F 06/26/23 17:13 Pulse 88 06/26/23 17:13 Resp 18 03/28/24 17:13 BP 154/102 H 06/26/23 17:13 Pulse Ox 99 06/26/23 17:13 O2 Del Method Room Air 06/26/23 17:13 BMI result Body Mass Index 35.5 hypertensive, vitals otherwise wnl Const: General: cooperative, healthy appearing, comfortable and no acute distress Orientation/consciousness: patient oriented x3 Limitations: no limitations Cardio: Rate: regular rate Rhythm: regular rhythm GI: Other: + abd soft, nondistended, ttp of the sup rapubic region without rebound or guarding. Normoactive bs x4. : Other: + pelvic exam deferred per patient General: Yes no CVA tenderness Back/Spine/Pelvis: Back: no CVA tenderness Skin: General skin exam: no rashes or lesions noted Neuro: General: patient oriented x3 Extrem: General: Yes normal to inspection, Yes full ROM and Yes capillary refill normal Course Course Course Narrative: RME:?38 yo female here for eval of severe pelvic pain x2 mos after IUD placement. states the physician ruptured a cyst during IUD placement and reports worsening pelvic pain similar to previous endometriosis flare. denies vaginal bleeding. irregular menses even prior to IUD placement. denies fever, chills, dysuria, hematurua. labs, US ordered Full HPI, ROS and PE to be performed by the primary ED provider. Reevaluation(s) Reevaluation #1: 1700-- CBC with slight leukocytosis, no left shift. no anemia. h&h stable. chemistry without acute electrolyte abnormality requiring intervention. urine negative. urine without infection or blood. pelvic ultrasound showing complex left ovarian cyst measuring 3.8cm, previously measuring 2.4cm. no free fluid in the culdesac. > findings discussed with my attending physician, Dr. Weston who recommends pain control with outpatient OBGYN follow up. discussed all work up results with patient. she states she is in the process of finding in OBGYN in [place]. i stressed the importance of following up with either OBGYN or her PCP regarding these findings. will send oxy to pharmacy for breakthrough pain. I have reviewed [employer] and patient last had 3 day script of oxy filled on 02/28/23. Patient has remained stable throughout ED visit today. Discussed worrisome signs and symptoms and when to return to the ED. All questions answered at this time. Patient is agreeable with disposition and stable for discharge. Medical Decision Making Medical Decision Making [facility] Narrative: 38 year old male with pmhx significant for endometriosis, bipolar disorder, hypothyroidism, and migraine presents to the ED today for evaluation of severe pelvic pain x2 months following IUD placement. Patient hypertensive. She is nontoxic appearing and in NAD. On exam, abd soft, nondistended, ttp of the suprapubic region without rebound or guarding. Normoactive bs x4. Pelvic exam deferred per patient. No cvat bilaterally. Differential diagnosis includes ovarian cyst, endometriosis, menstrual cramps, . unlikely PCOS, ovarian torsion, ectopic Plan for labs, UA, urine preg, and pelvic US Differential Diagnosis Differential Diagnoses: The differential diagnosis associated with the presentation includes as above. Admission/Observation not indicated Lab Data [facility] Lab Attestation statement: I reviewed the patient's lab results. as above. 06/26/23 11:04 06/26/23 11:04 Labs: Lab Results 06/26/23 06/26/23 Range/Units 11:04 11:07 WBC 14.3 H (4.8-10.8) X10*3/uL RBC 5.31 (4.20-5.50) X10*6/uL Hgb 16.0 (12.0-16.0) g/dl Hct 45.9 (37.0-47.0) % MCV 86.4 (80.0-98.0) fL MCH 30.1 (27.0-33.0) pg MCHC 34.9 (31.0-35.0) g/dl RDW 12.7 (11.0-16.0) % Plt Count 310 (160-400) X10*3/uL MPV 11.1 (9.4-12.3) fL Immature Gran % (Auto) 0.3 (0.0-0.4) % Neut % (Auto) 77.4 H (45-73) % Lymph % (Auto) 14.4 L (20-40) % [place] % (Auto) 6.2 (2-11) % Eos % (Auto) 1.2 (0-4) % Baso % (Auto) 0.5 (0-2) % Lymph # (Auto) 2.1 (1.2-4.9) X10*3/uL [place] # (Auto) 0.9 (0.1-1.2) X10*3/uL Eos # (Auto) 0.2 (0.0-0.4) X10*3/uL Baso # (Auto) 0.1 (0.0-0.2) X10*3/uL Abs Immat Gran (auto) 0.05 H (0.00-0.03) X10*3/uL Absolute Neuts (auto) 11.1 H (2.0-8.3) x10*3/uL Absolute Nucleated RBC 0.000 (0.0-0.012) X10*3/uL Nucleated RBC % (auto) 0.0 (0.0-0.2) /100WBC Sodium 141 (135-145) mmol/L Potassium 4.4 (3.3-5.1) mmol/L Chloride 108 (96-108) mmol/L Carbon Dioxide 23 (22-29) mmol/L Anion Gap 14 (12-20) BUN 10 (9-16) mg/dL Creatinine 0.86 (0.5-1.4) mg/dL Estim Creat Clear Calc 76.8 Estimated GFR > 60 Random Glucose 101 (60-115) mg/dL Calcium 9.6 (8.4-10.2) mg/dL Urine Color Yellow Urine Appearance Clear Urine pH 6.0 (5.0-9.0) Ur Specific [place] 1.025 (1.005-1.025) Urine Protein Negative (Neg-Trace) mg/dL Urine Glucose (UA) Negative (Negative) mg/dL Urine Ketones Negative (Negative) mg/dL Urine Blood Negative (Negative) Urine Nitrite Negative (Negative) Ur Leukocyte Esterase Negative (Negative) Urine Test NEGATIVE (NEGATIVE) Independent Interpretation I performed an independent interpretation of an: Ultrasound Interpretation: I have reviewed pelvic ultrasound and agree with radiologist's interpretation. Radiology Impression Discussion of test interpretation with radiology: I have reviewed the radiologist's reading. Radiologist Impression: EXAMINATION: US PELVIS CLINICAL INFORMATION: Severe pelvic pain, history of endometriosis COMPARISON: Ultrasound pelvis 10/24/2022. TECHNIQUE: Ultrasound of the pelvis is performed using both transabdominal and transvaginal transducers along with Doppler. Transvaginal imaging is performed due to inadequate visualization transabdominally. FINDINGS: Uterus: The uterus is anteverted, anteflexed and measures 8.0 x 4.0 x 6.6 cm. The double wall endometrial thickness is 9.0 mm. The uterus is smooth in contour and has normal myometrial echogenicity. No visible fibroid. Adnexa: Both ovaries are visualized. There is normal color flow to the adnexa. There is no ovarian torsion. There is no pelvic ascites or fluid collection. Right ovary measures 4.3 x 1.6 x 1.9 cm. Volume 6.7. The ovary is is not optimally visualized. No focal lesion seen. Previously right ovary measured 4.9 x 1.3 x 1.6 cm and volume 5.3 mL. Left ovary measures 5.1 x 3.4 x 3.8 cm. There is a complex anechoic cyst with septation measuring 3.8 x 2.5 x 2.4 cm. There is normal vascular flow seen. Previously complex cyst measured 2.4 x 1.4 x 1.6 cm. Previously left ovary measured 4.5 x 3.6 x 2.6 cm and volume 22.0 mL. There is no free fluid in the cul-de-sac US/US pelvic and transvaginal IMPRESSION: Unremarkable uterus. Complex cyst left ovary measuring 3.8 cm. Previously it measured 2.4 cm in maximum dimension. Right ovary not optimally visualized however appears unremarkable. There is no free fluid in the cul-de-sac. Prescription Management I considered prescription management with: Pain Medication Chronic Conditions Patient?s care impacted by: Other (endometriosis) Social Determinants Patient?s care significantly limited by Social Determinants of Health including: Other Social Determinant of Health Discharge Plan Discharge Clinical Impression: Endometriosis, Complex cyst of left ovary Patient Disposition: Home, Self-Care Instructions: Endometriosis (ED), Ovarian Cyst (ED), Pelvic Pain (ED) Additional Instructions: Your lab work today is reassuring. Your urine is negative for infection or blood. As discussed, pelvic ultrasound shows a complex left ovarian cyst that has increased in size from 2.4cm to 3.8 cm. Please follow up with your hand reamer as this should be monitored. A 3 day supply of oxycodone has been sent to your pharmacy for you to take for breakthrough pain You may also take Tylenol and ibuprofen at home for pain/discomfort. Return with new or worsening symptoms. In the case of an emergency call 911. Prescriptions: New oxycodone 5 mg tablet 5 mg PO Q8H PRN (Reason: pain (scale score 7-10)) 3 Days Qty: 7 0RF Rx Instructions: Partial Fill upon patient request. No Action levothyroxine 88 mcg tablet See Rx Instructions PO DAILY Rx Instructions: PO daily; lamotrigine 200 mg Tablet 200 mg PO DAILY fluoxetine 10 mg Capsule 10 mg PO DAILY oxycodone 5 mg tablet 5 mg PO Q8H PRN (Reason: pain) Qty: 10 0RF Rx Instructions: Partial Fill upon patient request. Referrals: Physician,None [Primary Care Provider] - Interventions: ED Discharge Assessment Last Done: 06/26/23 17:13 Discharge Date/Time: 06/26/23 17:14
[2023-06-26 16:51] VITALS: BP 154/102; PULSE 88; RESP 18; TEMP 36.3; O2SAT 99
[2023-06-26 17:13] VITALS: BP 154/102; PULSE 88; RESP 18; TEMP 36.3; O2SAT 99
== END 2023-06-26 17:14 | disposition home or self-care (01) ==
PROVIDERS: Emergency Medicine; Emergency Provider Student in an Organized Health Care Education/Training Program
DX: N80.9 Endometriosis, unspecified (principal); N83.292 Other ovarian cyst, left side; Z97.5 Presence of (intrauterine) contraceptive device
CPT/HCPCS: 36415; 76830; 76856; 80048; 81003; 81025; 85025; 99282; 99284